=== PATIENT | male | born 1985 | race Two or more races ===

== ENCOUNTER 2022-02-12 19:23 | Inpatient (IN) | payer MEDICAID ==
[~2022-02-12] VITALS: Ht 175.3 cm; Wt 104.3 kg
[~2022-02-12 19:23] MED LIST: PARO-38 PO; QUET100T PO; TRAZ-186 PO
[2022-02-12 20:11] LABS: GLUCOMETER DEV NAME(LOC) POC.BV
[2022-02-12] MEDS ORDERED: ZOLPIDEM TARTRATE 10 MG TABLET PO PRN (20:45)
[2022-02-12] MEDS ORDERED: LORazepam 2 MG TABLET PO PRN (20:45)
[2022-02-12] MEDS ORDERED: HALOPERIDOL 5 MG TABLET PO PRN (20:45)
[2022-02-12 22:38] VITALS: BP 103/72
[2022-02-12] MEDS ORDERED: PNEUMOCOCCAL VACCINE POLYVALENT 0.5 ML VIAL [PPSV23] IM. ONE (23:15)
[2022-02-13] MEDS ORDERED: PETROLATUM,WHITE 28 GM JELLY TP PRN (06:45)
[2022-02-13] MEDS ORDERED: DOCUSATE SODIUM 100 MG CAPSULE PO PRN (06:45)
[2022-02-13] MEDS ORDERED: LOPERAMIDE HCL 2 MG CAPSULE PO PRN (06:45)
[2022-02-13] MEDS ORDERED: NICOTINE 14 MG/24 HOUR PATCH TD PRN (06:45)
[2022-02-13] MEDS ORDERED: MAGNESIUM HYDROXIDE SUSPENSION 30 ML UDCUP PO PRN (06:45)
[2022-02-13] MEDS ORDERED: MAG HYDROX/AL HYDROX/SIMETH ES 30 ML SUSPENSION UDCUP PO PRN (06:45)
[2022-02-13] MEDS ORDERED: ACETAMINOPHEN 325 MG TABLET PO PRN (06:45)
[2022-02-13] MEDS ORDERED: CloNIDine HCL 0.1 MG TABLET PO PRN (06:45)
[2022-02-13] MEDS ORDERED: IBUPROFEN 400 MG TABLET PO PRN (06:45)
[2022-02-13] MEDS ORDERED: ONDANSETRON HCL 4 MG TABLET PO PRN (06:45)
[2022-02-13] MEDS ORDERED: ALBUTEROL SULFATE HFA 90 MCG/PUFF 8 GM INHALER IH PRN (06:45)
[2022-02-13] MEDS ORDERED: GuaiFENesin/D-METHORPHAN [SUGAR-FREE] 200-20MG/10 ML SYRUP UDCUP PO PRN (06:45)
[2022-02-13] MEDS: OLANZapine 5 MG RAPDIS TABLET PO SCH ×2 (13:56→20:32)
[2022-02-14 07:23] LABS: BASOPHILS % (AUTO) 1.3 % (0.0-2.0); EOSINOPHILS % (AUTO) 1.9 % (1.0-6.0); HEMATOCRIT 42.1 % (41-53); HEMOGLOBIN 14.2 g/dL (13.5-17.5); LYMPHOCYTES # (AUTO) 2.2 K/uL (1.0-4.8); LYMPHOCYTES % (AUTO) 28.9 % (22.0-44.0); MEAN CORPUSCULAR HEMOGLOBIN 30.2 pg (26.0-34.0); MEAN CORPUSCULAR HGB CONC 33.6 G/dL (31.0-37.0); MEAN CORPUSCULAR VOLUME 90 fL (80-100); MONOCYTES # (AUTO) 0.7 K/uL (0.1-1.0); MONOCYTES % (AUTO) 9.5 % (2.0-9.0); NEUTROPHILS # (AUTO) 4.5 K/uL (1.8-7.7); NEUTROPHILS % (AUTO) 58.4 % (40.0-70.0); PLATELET COUNT (AUTO) 314 K/uL (150-450); RED BLOOD CELL COUNT(AUTO) 4.69 MIL/uL (4.50-5.90); RED CELL DISTRIBUTION WIDTH 14.3 % (11.5-14.5)
[2022-02-14 07:31] LABS: HEMOGLOBIN A1C 5.8 % (3.8-5.6)
[2022-02-14 07:47] LABS: ALANINE AMINOTRANSFERASE 46 U/L (12-78); ALBUMIN 3.2 g/dL (3.4-5.0); ALKALINE PHOSPHATASE 82 U/L (46-116); ASPARTATE AMINOTRANSFERASE 32 U/L (15-37); BILIRUBIN,TOTAL 0.4 mg/dL (0.1-1.0); CALCIUM, TOTAL 8.7 mg/dL (8.8-10.5); CARBON DIOXIDE 29 mmol/L (22-29); CHOL/HDL RATIO 4.9 (4.2-7.3); CHOLESTEROL 162 mg/dL (131-200); CREATININE 0.72 mg/dL (0.60-1.30); FREE T4 (FREE THYROXINE) 1.16 ng/dL (0.76-1.46); GLUCOSE,RANDOM 99 mg/dL (70-110); HDL CHOLESTEROL 33 mg/dL (40-60); LDL CHOL (CALC.) 112 mg/dL (0-130); POTASSIUM 3.7 mmol/L (3.5-5.1); THYROID STIMULATING HORMONE 0.51 uIU/mL (0.36-3.74); TOTAL PROTEIN, SERUM 6.9 g/dL (6.4-8.2); TRIGLYCERIDES 87 mg/dL (15-150); UREA NITROGEN, BLOOD 10 mg/dL (7-18)
[2022-02-14 07:48] LABS: ANION GAP 6 mmol/L (8-16); CHLORIDE 105 mmol/L (98-107); GLOMERULAR FILTR. RATE CALC > 60 mL/min (>60); SODIUM SERUM 140 mmol/L (136-145)
[2022-02-14 08:40] VITALS: BP 140/90
[2022-02-14] MEDS: OLANZapine 5 MG RAPDIS TABLET PO SCH (10:29)
[2022-02-14] MEDS ORDERED: OLAN5TAB94 PO (13:17)
[2022-02-14] MEDS ORDERED: OLAN5TAB30 PO (13:26)
== END 2022-02-14 14:00 | disposition home or self-care (01) | DRG 750 ==
LOC: B2S 20:33
PROVIDERS: ADMIT Psychiatry & Neurology Child & Adolescent Psychiatry; ATTEND Psychiatry & Neurology Child & Adolescent Psychiatry
DX: F25.1 Schizoaffective disorder, depressive type (principal); R45.851 Suicidal ideations; F15.10 Other stimulant abuse, uncomplicated; F10.10 Alcohol abuse, uncomplicated; G47.00 Insomnia, unspecified; I10 Essential (primary) hypertension; E66.9 Obesity, unspecified; F41.9 Anxiety disorder, unspecified; Z20.822 Contact with and (suspected) exposure to COVID-19; Z68.34 Body mass index [BMI] 34.0-34.9, adult; Z79.01 Long term (current) use of anticoagulants; Z79.899 Other long term (current) drug therapy
CPT/HCPCS: 80053; 80061; 83036; 84439; 84443; 85025

== ENCOUNTER 2022-02-17 06:27 | Inpatient (IN) | payer MEDICAID, OTHER ==
[~2022-02-17] VITALS: Ht 172.7 cm; Wt 88.7 kg
[~2022-02-17 06:27] MED LIST changes: +OLAN5TAB30 PO; +OLAN5TAB94 PO; -PARO-38 PO; -QUET100T PO; -TRAZ-186 PO
[2022-02-17 07:00] LABS: BASOPHILS % (AUTO) 0.9 % (0.0-2.0); EOSINOPHILS % (AUTO) 1.6 % (1.0-6.0); HEMOGLOBIN 14.2 g/dL (13.5-17.5); LYMPHOCYTES # (AUTO) 1.9 K/uL (1.0-4.8); LYMPHOCYTES % (AUTO) 18.5 % (22.0-44.0); MEAN CORPUSCULAR HEMOGLOBIN 30.2 pg (26.0-34.0); MEAN CORPUSCULAR HGB CONC 33.9 G/dL (31.0-37.0); MEAN CORPUSCULAR VOLUME 89 fL (80-100); MONOCYTES # (AUTO) 0.8 K/uL (0.1-1.0); MONOCYTES % (AUTO) 8.1 % (2.0-9.0); NEUTROPHILS # (AUTO) 7.4 K/uL (1.8-7.7); NEUTROPHILS % (AUTO) 70.9 % (40.0-70.0); PLATELET COUNT (AUTO) 322 K/uL (150-450); RED BLOOD CELL COUNT(AUTO) 4.71 MIL/uL (4.50-5.90); RED CELL DISTRIBUTION WIDTH 14.1 % (11.5-14.5)
[2022-02-17 07:11] LABS: ANION GAP 7 mmol/L (8-16); CARBON DIOXIDE 27 mmol/L (22-29); CHLORIDE 102 mmol/L (98-107); CREATININE 0.72 mg/dL (0.60-1.30); GLOMERULAR FILTR. RATE CALC > 60 mL/min (>60); GLUCOSE,RANDOM 88 mg/dL (70-110); POTASSIUM 3.9 mmol/L (3.5-5.1); SODIUM SERUM 136 mmol/L (136-145); UREA NITROGEN, BLOOD 9 mg/dL (7-18)
[2022-02-17 07:19] LABS: ALANINE AMINOTRANSFERASE 67 U/L (12-78); ALBUMIN 3.8 g/dL (3.4-5.0); ALKALINE PHOSPHATASE 80 U/L (46-116); ASPARTATE AMINOTRANSFERASE 35 U/L (15-37); TOTAL PROTEIN, SERUM 7.8 g/dL (6.4-8.2)
[2022-02-17 07:28] LABS: COVID AG,FIA SOURCE NASOPHARYNGEAL
[2022-02-17] MEDS: HALOPERIDOL 5 MG TABLET PO PRN (12:20)
[2022-02-17] MEDS: LORazepam 2 MG TABLET PO PRN (12:20)
[2022-02-17 12:36] VITALS: BP 140/89
[2022-02-17 20:06] VITALS: BP 100/60
[2022-02-18 08:50] VITALS: BP 124/72
[2022-02-18] MEDS: OLANZapine 5 MG TABLET PO SCH ×2 (09:37→20:01)
[2022-02-18] MEDS ORDERED: ACETAMINOPHEN 325 MG TABLET PO PRN (11:30)
[2022-02-18] MEDS ORDERED: NICOTINE 14 MG/24 HOUR PATCH TD PRN (11:30)
[2022-02-18] MEDS ORDERED: CloNIDine HCL 0.1 MG TABLET PO PRN (11:30)
[2022-02-18] MEDS ORDERED: ALBUTEROL SULFATE HFA 90 MCG/PUFF 8 GM INHALER IH PRN (11:30)
[2022-02-18] MEDS ORDERED: GuaiFENesin/D-METHORPHAN [SUGAR-FREE] 200-20MG/10 ML SYRUP UDCUP PO PRN (11:30)
[2022-02-18] MEDS ORDERED: ONDANSETRON HCL 4 MG TABLET PO PRN (11:30)
[2022-02-18] MEDS ORDERED: PETROLATUM,WHITE 28 GM JELLY TP PRN (11:30)
[2022-02-18] MEDS ORDERED: MAGNESIUM HYDROXIDE SUSPENSION 30 ML UDCUP PO PRN (11:30)
[2022-02-18] MEDS ORDERED: MAG HYDROX/AL HYDROX/SIMETH ES 30 ML SUSPENSION UDCUP PO PRN (11:30)
[2022-02-18] MEDS ORDERED: LOPERAMIDE HCL 2 MG CAPSULE PO PRN (11:30)
[2022-02-18] MEDS ORDERED: DOCUSATE SODIUM 100 MG CAPSULE PO PRN (11:30)
[2022-02-18] MEDS ORDERED: IBUPROFEN 400 MG TABLET PO PRN (11:30)
[2022-02-18] MEDS: ZOLPIDEM TARTRATE 10 MG TABLET PO PRN (20:01)
[2022-02-18 20:27] VITALS: BP 115/60
[2022-02-19 07:28] LABS: APPEARANCE,URINE TURBID (CLEAR); BILIRUBIN,URINE NEGATIVE (NEGATIVE); GLUCOSE, URINE (UA) NEGATIVE (NEGATIVE); KETONES,URINE 40-60 mg/dL (NEGATIVE); LEUKOCYTE ESTERASE ,URINE NEGATIVE (NEGATIVE); NITRATE,URINE NEGATIVE (NEGATIVE); OCCULT BLOOD,URINE NEGATIVE (NEGATIVE); PROTEIN,URINE TRACE mg/dL (NEGATIVE); SPECIFIC GRAVITIY, URINE 1.026 (1.003-1.030)
[2022-02-19 07:34] LABS: AMPHET/METH SCREEN,URINE POSITIVE (NEGATIVE); BARBITURATE SCREEN, URINE NEGATIVE (NEGATIVE); BENZODIAZEPINES SCREEN,URINE NEGATIVE (NEGATIVE); CANNABINOID SCREEN,URINE POSITIVE (NEGATIVE); COCAINE SCREEN,URINE NEGATIVE (NEGATIVE); METHADONE SCREEN, URINE NEGATIVE (NEGATIVE); OPIATE SCREEN,URINE NEGATIVE (NEGATIVE)
[2022-02-19 07:58] LABS: BACTERIA,URINE None Seen /HPF (None Seen); RBC,URINE None Seen /HPF (0-2); SQUAMOUS EPITHELIAL CELL,UR Few /LPF (None Seen); URIC ACID CRYSTALS,URINE Few /LPF (None Seen); WBC,URINE None Seen /HPF (0-5)
[2022-02-19 08:17] LABS: PHENCYCLIDINE SCREEN,URINE NEGATIVE (NEGATIVE)
[2022-02-19] MEDS: LORazepam 2 MG TABLET PO PRN ×3 (08:30→16:48)
[2022-02-19] MEDS: OLANZapine 5 MG TABLET PO SCH ×2 (08:31→20:40)
[2022-02-19 09:56] VITALS: BP 122/70
[2022-02-19] MEDS: HALOPERIDOL 5 MG TABLET PO PRN (16:48)
[2022-02-20] MEDS: LORazepam 2 MG TABLET PO PRN ×4 (07:13→16:54)
[2022-02-20] MEDS: HALOPERIDOL 5 MG TABLET PO PRN ×2 (07:13→16:38)
[2022-02-20] MEDS: OLANZapine 5 MG TABLET PO SCH ×2 (08:40→20:13)
[2022-02-20] MEDS: ZOLPIDEM TARTRATE 10 MG TABLET PO PRN (20:13)
[2022-02-20 20:20] VITALS: BP 109/71
[2022-02-21] MEDS: LORazepam 2 MG TABLET PO PRN ×4 (08:01→21:29)
[2022-02-21] MEDS: OLANZapine 5 MG TABLET PO SCH ×2 (08:01→20:34)
[2022-02-21 08:38] VITALS: BP 155/102
[2022-02-21] MEDS: HALOPERIDOL 5 MG TABLET PO PRN (16:09)
[2022-02-21 20:16] VITALS: BP 127/81
[2022-02-21] MEDS: IBUPROFEN 400 MG TABLET PO PRN (20:34)
[2022-02-21] MEDS: ZOLPIDEM TARTRATE 10 MG TABLET PO PRN (20:34)
[2022-02-22] MEDS: IBUPROFEN 400 MG TABLET PO PRN (06:47)
[2022-02-22] MEDS: LORazepam 2 MG TABLET PO PRN ×4 (08:28→20:39)
[2022-02-22] MEDS: OLANZapine 5 MG TABLET PO SCH ×2 (08:29→20:39)
[2022-02-22 08:41] VITALS: BP 159/80
[2022-02-22] MEDS: HALOPERIDOL 5 MG TABLET PO PRN ×3 (11:46→20:39)
[2022-02-22 16:09] VITALS: BP 132/78
[2022-02-22] MEDS: TraMADol HCL 50 MG TABLET PO PRN ×2 (16:09→20:40)
[2022-02-22 20:16] VITALS: BP 133/84
[2022-02-22] MEDS: ZOLPIDEM TARTRATE 10 MG TABLET PO PRN (20:39)
[2022-02-23] MEDS: LORazepam 2 MG TABLET PO PRN ×3 (06:28→18:54)
[2022-02-23] MEDS: OLANZapine 5 MG TABLET PO SCH ×2 (08:15→20:58)
[2022-02-23 08:17] VITALS: BP 136/70
[2022-02-23] MEDS: TraMADol HCL 50 MG TABLET PO PRN ×3 (09:05→23:04)
[2022-02-23] MEDS: HALOPERIDOL 5 MG TABLET PO PRN (15:38)
[2022-02-23 16:59] VITALS: BP 135/74
[2022-02-23] MEDS: IBUPROFEN 400 MG TABLET PO PRN (16:59)
[2022-02-23 20:16] VITALS: BP 147/83
[2022-02-24] MEDS: LORazepam 2 MG TABLET PO PRN ×3 (00:51→12:37)
[2022-02-24] MEDS: ZOLPIDEM TARTRATE 10 MG TABLET PO PRN (00:52)
[2022-02-24] MEDS: HALOPERIDOL 5 MG TABLET PO PRN ×2 (07:01→12:37)
[2022-02-24] MEDS: OLANZapine 5 MG TABLET PO SCH (08:13)
[2022-02-24 08:42] VITALS: BP 130/76
[2022-02-24 08:51] LABS: GLUCOMETER DEV NAME(LOC) POC.BV
[2022-02-24] MEDS ORDERED: OLAN5TAB52 PO (15:02)
== END 2022-02-24 16:57 | disposition home or self-care (01) | DRG 750 ==
LOC: EMS 06:27 → B3A 09:41
PROVIDERS: ADMIT Psychiatry & Neurology Child & Adolescent Psychiatry; ATTEND Psychiatry & Neurology Child & Adolescent Psychiatry
DX: F25.1 Schizoaffective disorder, depressive type (principal); R45.851 Suicidal ideations; F41.9 Anxiety disorder, unspecified; F15.10 Other stimulant abuse, uncomplicated; I10 Essential (primary) hypertension; F10.10 Alcohol abuse, uncomplicated; Z20.822 Contact with and (suspected) exposure to COVID-19; Y90.9 Presence of alcohol in blood, level not specified; K59.00 Constipation, unspecified; F12.10 Cannabis abuse, uncomplicated; Z87.891 Personal history of nicotine dependence; Z59.00 Homelessness unspecified; Z91.51 Personal history of suicidal behavior; Z71.41 Alcohol abuse counseling and surveillance of alcoholic; Z71.6 Tobacco abuse counseling
CPT/HCPCS: 80053; 81001; 85025; 87081; 99285; G0480

== ENCOUNTER 2022-02-24 23:24 | Inpatient (IN) | payer MEDICAID, OTHER ==
[~2022-02-24] VITALS: Ht 175.3 cm; Wt 104.4 kg
[~2022-02-24 23:24] MED LIST changes: -OLAN5TAB30 PO; +OLAN5TAB52 PO; -OLAN5TAB94 PO
[2022-02-25 00:42] LABS: BASOPHILS % (AUTO) 0.7 % (0.0-2.0); EOSINOPHILS % (AUTO) 0.2 % (1.0-6.0); HEMATOCRIT 43.6 % (41-53); HEMOGLOBIN 14.8 g/dL (13.5-17.5); LYMPHOCYTES # (AUTO) 1.7 K/uL (1.0-4.8); LYMPHOCYTES % (AUTO) 21.3 % (22.0-44.0); MEAN CORPUSCULAR HEMOGLOBIN 30.2 pg (26.0-34.0); MEAN CORPUSCULAR HGB CONC 33.9 G/dL (31.0-37.0); MEAN CORPUSCULAR VOLUME 89 fL (80-100); MONOCYTES # (AUTO) 0.7 K/uL (0.1-1.0); MONOCYTES % (AUTO) 8.5 % (2.0-9.0); NEUTROPHILS # (AUTO) 5.5 K/uL (1.8-7.7); NEUTROPHILS % (AUTO) 69.3 % (40.0-70.0); PLATELET COUNT (AUTO) 328 K/uL (150-450); RED BLOOD CELL COUNT(AUTO) 4.89 MIL/uL (4.50-5.90); RED CELL DISTRIBUTION WIDTH 14.6 % (11.5-14.5)
[2022-02-25 00:51] LABS: ANION GAP 7 mmol/L (8-16); CALCIUM, TOTAL 8.9 mg/dL (8.8-10.5); CARBON DIOXIDE 28 mmol/L (22-29); CHLORIDE 103 mmol/L (98-107); CREATININE 0.73 mg/dL (0.60-1.30); GLUCOSE,RANDOM 111 mg/dL (70-110); POTASSIUM 4.1 mmol/L (3.5-5.1); SODIUM SERUM 138 mmol/L (136-145); UREA NITROGEN, BLOOD 4 mg/dL (7-18)
[2022-02-25 00:54] LABS: GLOMERULAR FILTR. RATE CALC > 60 mL/min (>60)
[2022-02-25 00:58] LABS: ALANINE AMINOTRANSFERASE 155 U/L (12-78); ALBUMIN 3.9 g/dL (3.4-5.0); ALKALINE PHOSPHATASE 87 U/L (46-116); ASPARTATE AMINOTRANSFERASE 69 U/L (15-37); BILIRUBIN,TOTAL 0.3 mg/dL (0.1-1.0); TOTAL PROTEIN, SERUM 7.8 g/dL (6.4-8.2)
[2022-02-25 01:27] LABS: COVID AG,FIA SOURCE NASAL SWAB
[2022-02-25] MEDS ORDERED: LORazepam 2 MG TABLET PO PRN (03:45)
[2022-02-25] MEDS ORDERED: ZOLPIDEM TARTRATE 10 MG TABLET PO PRN (03:45)
[2022-02-25 04:30] VITALS: BP 156/107
[2022-02-25] MEDS ORDERED: LOPERAMIDE HCL 2 MG CAPSULE PO PRN (07:30)
[2022-02-25] MEDS ORDERED: MAGNESIUM HYDROXIDE SUSPENSION 30 ML UDCUP PO PRN (07:30)
[2022-02-25] MEDS ORDERED: PETROLATUM,WHITE 28 GM JELLY TP PRN (07:30)
[2022-02-25] MEDS ORDERED: ONDANSETRON HCL 4 MG TABLET PO PRN (07:30)
[2022-02-25] MEDS ORDERED: IBUPROFEN 400 MG TABLET PO PRN (07:30)
[2022-02-25] MEDS ORDERED: MAG HYDROX/AL HYDROX/SIMETH ES 30 ML SUSPENSION UDCUP PO PRN (07:30)
[2022-02-25] MEDS ORDERED: CloNIDine HCL 0.1 MG TABLET PO PRN (07:30)
[2022-02-25] MEDS ORDERED: DOCUSATE SODIUM 100 MG CAPSULE PO PRN (07:30)
[2022-02-25] MEDS ORDERED: GuaiFENesin/D-METHORPHAN [SUGAR-FREE] 200-20MG/10 ML SYRUP UDCUP PO PRN (07:30)
[2022-02-25] MEDS ORDERED: ALBUTEROL SULFATE HFA 90 MCG/PUFF 8 GM INHALER IH PRN (07:30)
[2022-02-25] MEDS ORDERED: ACETAMINOPHEN 325 MG TABLET PO PRN (07:30)
[2022-02-25 08:00] VITALS: BP 150/96
[2022-02-25] MEDS: AmLODIPine BESYLATE 5 MG TABLET PO SCH (10:09)
[2022-02-25] MEDS: HALOPERIDOL 5 MG TABLET PO PRN ×2 (10:19→17:53)
[2022-02-25] MEDS: NICOTINE 14 MG/24 HOUR PATCH TD PRN (13:17)
[2022-02-25 13:19] VITALS: BP 140/97
[2022-02-25] MEDS: OLANZapine 5 MG TABLET PO SCH ×2 (14:43→21:08)
[2022-02-25 16:13] VITALS: BP 122/75
[2022-02-25] MEDS: HydrOXYzine PAMOATE 50 MG CAPSULE PO PRN (17:53)
[2022-02-26] MEDS: HALOPERIDOL 5 MG TABLET PO PRN ×2 (00:57→15:41)
[2022-02-26 08:09] VITALS: BP 147/90
[2022-02-26] MEDS: OLANZapine 5 MG TABLET PO SCH ×2 (09:17→20:27)
[2022-02-26] MEDS: AmLODIPine BESYLATE 5 MG TABLET PO SCH (09:17)
[2022-02-26] MEDS: HydrOXYzine PAMOATE 50 MG CAPSULE PO PRN (15:41)
[2022-02-26 16:09] VITALS: BP 124/73
[2022-02-26] MEDS: NICOTINE 14 MG/24 HOUR PATCH TD PRN (16:39)
[2022-02-27] MEDS: AmLODIPine BESYLATE 5 MG TABLET PO SCH (08:44)
[2022-02-27] MEDS: HydrOXYzine PAMOATE 50 MG CAPSULE PO PRN (08:44)
[2022-02-27] MEDS: OLANZapine 5 MG TABLET PO SCH ×2 (08:44→20:13)
[2022-02-27] MEDS: HALOPERIDOL 5 MG TABLET PO PRN (08:44)
[2022-02-27 11:47] VITALS: BP 144/90
[2022-02-27 16:28] VITALS: BP 133/86
[2022-02-28 08:30] VITALS: BP 129/86
[2022-02-28] MEDS: AmLODIPine BESYLATE 5 MG TABLET PO SCH (08:44)
[2022-02-28] MEDS: HALOPERIDOL 5 MG TABLET PO PRN (08:44)
[2022-02-28] MEDS: OLANZapine 5 MG TABLET PO SCH (08:44)
[2022-02-28] MEDS: HydrOXYzine PAMOATE 50 MG CAPSULE PO PRN (08:44)
[2022-02-28] MEDS ORDERED: OLAN5TAB52 PO (11:02)
[2022-02-28] MEDS ORDERED: AMLO-257 PO ×2 (11:08→11:20)
== END 2022-02-28 11:55 | disposition home or self-care (01) | DRG 750 ==
LOC: EMS 23:25 → 3EI 02-25 03:51
PROVIDERS: ADMIT Psychiatry & Neurology Child & Adolescent Psychiatry; ATTEND Psychiatry & Neurology Child & Adolescent Psychiatry
DX: F25.1 Schizoaffective disorder, depressive type (principal); R45.851 Suicidal ideations; I10 Essential (primary) hypertension; K59.00 Constipation, unspecified; E66.9 Obesity, unspecified; Y90.1 Blood alcohol level of 20-39 mg/100 ml; F10.10 Alcohol abuse, uncomplicated; F41.9 Anxiety disorder, unspecified; F32.A Depression, unspecified; F15.10 Other stimulant abuse, uncomplicated; F12.10 Cannabis abuse, uncomplicated; Z20.822 Contact with and (suspected) exposure to COVID-19; Z59.00 Homelessness unspecified; Z87.891 Personal history of nicotine dependence; Z91.51 Personal history of suicidal behavior; Z79.899 Other long term (current) drug therapy; Z68.34 Body mass index [BMI] 34.0-34.9, adult
CPT/HCPCS: 80053; 85025; 87081; 99285; G0480

== ENCOUNTER 2022-04-17 17:09 | Inpatient (IN) | payer MEDICAID ==
[~2022-04-17] VITALS: Ht 175.3 cm; Wt 102.1 kg
[~2022-04-17 17:09] MED LIST changes: +AMLO-257 PO
[2022-04-17] MEDS ORDERED: MAGNESIUM HYDROXIDE SUSPENSION 30 ML UDCUP PO PRN (17:45)
[2022-04-17] MEDS ORDERED: OLANZapine 5 MG RAPDIS TABLET PO PRN (17:45)
[2022-04-17] MEDS ORDERED: MAG HYDROX/AL HYDROX/SIMETH ES 30 ML SUSPENSION UDCUP PO PRN (17:45)
[2022-04-17] MEDS ORDERED: HydrOXYzine PAMOATE 50 MG CAPSULE PO PRN (17:45)
[2022-04-17] MEDS ORDERED: TUBERCULIN, PURIFIED PROTEIN DERIVATIVE 5 TU/0.1 ML SYRINGE ID ONE (17:45)
[2022-04-17] MEDS ORDERED: LOPERAMIDE HCL 2 MG CAPSULE PO PRN (17:45)
[2022-04-17] MEDS ORDERED: GuaiFENesin/D-METHORPHAN [SUGAR-FREE] 200-20MG/10 ML SYRUP UDCUP PO PRN (17:45)
[2022-04-17] MEDS ORDERED: PROMETHAZINE HCL 25 MG TABLET PO PRN (17:45)
[2022-04-17 18:22] LABS: GLUCOMETER DEV NAME(LOC) POC.BV
[2022-04-17] MEDS ORDERED: PNEUMOCOCCAL VACCINE POLYVALENT 0.5 ML VIAL [PPSV23] IM. ONE (19:45)
[2022-04-17] MEDS ORDERED: INFLUENZA VIRUS VACCINE QVS 2022-23 (6MO+)/PF 60 MCG/0.5 ML SYRINGE IM. ONE (19:45)
[2022-04-17] MEDS: THIAMINE 100 MG TABLET PO SCH (20:33)
[2022-04-17] MEDS: MELATONIN 5 MG TABLET PO SCH (20:34)
[2022-04-17] MEDS ORDERED: OLANZapine 5 MG RAPDIS TABLET PO SCH (21:00)
[2022-04-17 21:04] VITALS: BP 131/71
[2022-04-18 07:04] LABS: BASOPHILS % (AUTO) 1.2 % (0.0-2.0); EOSINOPHILS % (AUTO) 2.7 % (1.0-6.0); HEMATOCRIT 41.5 % (41-53); HEMOGLOBIN 13.9 g/dL (13.5-17.5); LYMPHOCYTES # (AUTO) 2.6 K/uL (1.0-4.8); LYMPHOCYTES % (AUTO) 37.1 % (22.0-44.0); MEAN CORPUSCULAR HEMOGLOBIN 29.7 pg (26.0-34.0); MEAN CORPUSCULAR HGB CONC 33.4 G/dL (31.0-37.0); MEAN CORPUSCULAR VOLUME 89 fL (80-100); MONOCYTES # (AUTO) 0.7 K/uL (0.1-1.0); MONOCYTES % (AUTO) 9.8 % (2.0-9.0); NEUTROPHILS # (AUTO) 3.4 K/uL (1.8-7.7); NEUTROPHILS % (AUTO) 49.2 % (40.0-70.0); PLATELET COUNT (AUTO) 369 K/uL (150-450); RED BLOOD CELL COUNT(AUTO) 4.67 MIL/uL (4.50-5.90); RED CELL DISTRIBUTION WIDTH 14.2 % (11.5-14.5)
[2022-04-18 07:30] LABS: HEMOGLOBIN A1C 5.3 % (3.8-5.6)
[2022-04-18 07:33] LABS: ALANINE AMINOTRANSFERASE 27 U/L (12-78); ALBUMIN 3.2 g/dL (3.4-5.0); ALKALINE PHOSPHATASE 79 U/L (46-116); ANION GAP 7 mmol/L (8-16); ASPARTATE AMINOTRANSFERASE 17 U/L (15-37); BILIRUBIN,TOTAL 0.4 mg/dL (0.1-1.0); CARBON DIOXIDE 28 mmol/L (22-29); CHLORIDE 106 mmol/L (98-107); CHOL/HDL RATIO 3.9 (4.2-7.3); CHOLESTEROL 138 mg/dL (131-200); CREATININE 0.75 mg/dL (0.60-1.30); FREE T4 (FREE THYROXINE) 0.99 ng/dL (0.76-1.46); GLUCOSE,RANDOM 99 mg/dL (70-110); HDL CHOLESTEROL 35 mg/dL (40-60); LDL CHOL (CALC.) 83 mg/dL (0-130); POTASSIUM 3.5 mmol/L (3.5-5.1); SODIUM SERUM 141 mmol/L (136-145); THYROID STIMULATING HORMONE 1.41 uIU/mL (0.36-3.74); TOTAL PROTEIN, SERUM 6.9 g/dL (6.4-8.2); TRIGLYCERIDES 100 mg/dL (15-150); UREA NITROGEN, BLOOD 8 mg/dL (7-18)
[2022-04-18 07:34] LABS: GLOMERULAR FILTR. RATE CALC > 60 mL/min (>60)
[2022-04-18] MEDS: OMEGA-3/DHA/EPA/FISH OIL 1,000 MG CAPSULE PO SCH (08:22)
[2022-04-18] MEDS: FOLIC ACID 1 MG TABLET PO SCH (08:23)
[2022-04-18] MEDS: MULTIVITAMINS WITH MINERALS, THERAPEUTIC TABLET PO SCH (08:23)
[2022-04-18] MEDS: NALTREXONE HCL 50 MG TABLET PO SCH (08:23)
[2022-04-18] MEDS: THIAMINE 100 MG TABLET PO SCH ×2 (08:23→16:11)
[2022-04-18 08:49] VITALS: BP 109/66
[2022-04-18] MEDS: LORazepam 2 MG TABLET PO PRN (15:56)
[2022-04-18] MEDS: MELATONIN 5 MG TABLET PO SCH (20:40)
[2022-04-18] MEDS: OLANZapine 10 MG RAPDIS TABLET PO SCH (20:41)
[2022-04-19 01:00] VITALS: BP 128/70
[2022-04-19 08:29] VITALS: BP 133/93
[2022-04-19] MEDS: NALTREXONE HCL 50 MG TABLET PO SCH (08:44)
[2022-04-19] MEDS: MULTIVITAMINS WITH MINERALS, THERAPEUTIC TABLET PO SCH (08:44)
[2022-04-19] MEDS: FOLIC ACID 1 MG TABLET PO SCH (08:44)
[2022-04-19] MEDS: LORazepam 2 MG TABLET PO PRN (08:44)
[2022-04-19] MEDS: OMEGA-3/DHA/EPA/FISH OIL 1,000 MG CAPSULE PO SCH (08:44)
[2022-04-19] MEDS: THIAMINE 100 MG TABLET PO SCH ×2 (08:44→16:11)
[2022-04-19 20:11] VITALS: BP 140/82
[2022-04-19] MEDS: MELATONIN 5 MG TABLET PO SCH (20:12)
[2022-04-19] MEDS: OLANZapine 10 MG RAPDIS TABLET PO SCH (20:12)
[2022-04-19] MEDS: DIVALPROEX SODIUM 500 MG ER TABLET PO SCH (20:13)
[2022-04-20] MEDS: MULTIVITAMINS WITH MINERALS, THERAPEUTIC TABLET PO SCH (08:24)
[2022-04-20] MEDS: OMEGA-3/DHA/EPA/FISH OIL 1,000 MG CAPSULE PO SCH (08:24)
[2022-04-20] MEDS: NALTREXONE HCL 50 MG TABLET PO SCH (08:24)
[2022-04-20] MEDS: LORazepam 2 MG TABLET PO PRN (08:24)
[2022-04-20] MEDS: THIAMINE 100 MG TABLET PO SCH ×2 (08:24→16:19)
[2022-04-20] MEDS: FOLIC ACID 1 MG TABLET PO SCH (08:24)
[2022-04-20 08:27] VITALS: BP 121/74
[2022-04-20] MEDS: DIVALPROEX SODIUM 500 MG ER TABLET PO SCH (20:12)
[2022-04-20] MEDS: MELATONIN 5 MG TABLET PO SCH (20:12)
[2022-04-20] MEDS: OLANZapine 10 MG RAPDIS TABLET PO SCH (20:12)
[2022-04-20 20:14] VITALS: BP 118/64
[2022-04-21] MEDS: OMEGA-3/DHA/EPA/FISH OIL 1,000 MG CAPSULE PO SCH (08:26)
[2022-04-21] MEDS: THIAMINE 100 MG TABLET PO SCH ×2 (08:26→16:12)
[2022-04-21] MEDS: FOLIC ACID 1 MG TABLET PO SCH (08:27)
[2022-04-21] MEDS: NALTREXONE HCL 50 MG TABLET PO SCH (08:27)
[2022-04-21] MEDS: MULTIVITAMINS WITH MINERALS, THERAPEUTIC TABLET PO SCH (08:27)
[2022-04-21] MEDS: LORazepam 2 MG TABLET PO PRN ×2 (08:27→16:12)
[2022-04-21 09:28] VITALS: BP 132/78
[2022-04-21] MEDS: DIVALPROEX SODIUM 500 MG ER TABLET PO SCH (20:40)
[2022-04-21] MEDS: OLANZapine 10 MG RAPDIS TABLET PO SCH (20:40)
[2022-04-21] MEDS: MELATONIN 5 MG TABLET PO SCH (20:40)
[2022-04-21 20:52] VITALS: BP 117/76
[2022-04-22 07:51] LABS: APPEARANCE,URINE HAZY (CLEAR); BILIRUBIN,URINE NEGATIVE (NEGATIVE); GLUCOSE, URINE (UA) NEGATIVE (NEGATIVE); KETONES,URINE TRACE mg/dL (NEGATIVE); LEUKOCYTE ESTERASE ,URINE NEGATIVE (NEGATIVE); NITRATE,URINE NEGATIVE (NEGATIVE); OCCULT BLOOD,URINE NEGATIVE (NEGATIVE); PROTEIN,URINE NEGATIVE (NEGATIVE); SPECIFIC GRAVITIY, URINE 1.015 (1.003-1.030); UROBILINOGEN,URINE <=1.0 mg/dL (<=1.0)
[2022-04-22 07:54] LABS: AMPHET/METH SCREEN,URINE NEGATIVE (NEGATIVE); BARBITURATE SCREEN, URINE NEGATIVE (NEGATIVE); BENZODIAZEPINES SCREEN,URINE NEGATIVE (NEGATIVE); CANNABINOID SCREEN,URINE NEGATIVE (NEGATIVE); COCAINE SCREEN,URINE NEGATIVE (NEGATIVE); METHADONE SCREEN, URINE NEGATIVE (NEGATIVE); OPIATE SCREEN,URINE NEGATIVE (NEGATIVE); PHENCYCLIDINE SCREEN,URINE NEGATIVE (NEGATIVE)
[2022-04-22 08:36] VITALS: BP 115/70
[2022-04-22] MEDS: THIAMINE 100 MG TABLET PO SCH ×2 (09:14→16:07)
[2022-04-22] MEDS: MULTIVITAMINS WITH MINERALS, THERAPEUTIC TABLET PO SCH (09:14)
[2022-04-22] MEDS: NALTREXONE HCL 50 MG TABLET PO SCH (09:14)
[2022-04-22] MEDS: FOLIC ACID 1 MG TABLET PO SCH (09:14)
[2022-04-22] MEDS: OMEGA-3/DHA/EPA/FISH OIL 1,000 MG CAPSULE PO SCH (09:14)
[2022-04-22] MEDS: LORazepam 2 MG TABLET PO PRN (16:07)
[2022-04-22] MEDS: MELATONIN 5 MG TABLET PO SCH (20:28)
[2022-04-22] MEDS: DIVALPROEX SODIUM 500 MG ER TABLET PO SCH (20:28)
[2022-04-22] MEDS: OLANZapine 10 MG RAPDIS TABLET PO SCH (20:28)
[2022-04-22 20:56] VITALS: BP 132/76
[2022-04-23 08:09] VITALS: BP 119/73
[2022-04-23] MEDS: THIAMINE 100 MG TABLET PO SCH ×2 (08:21→16:06)
[2022-04-23] MEDS: FOLIC ACID 1 MG TABLET PO SCH (08:21)
[2022-04-23] MEDS: OMEGA-3/DHA/EPA/FISH OIL 1,000 MG CAPSULE PO SCH (08:21)
[2022-04-23] MEDS: MULTIVITAMINS WITH MINERALS, THERAPEUTIC TABLET PO SCH (08:21)
[2022-04-23] MEDS: NALTREXONE HCL 50 MG TABLET PO SCH (08:21)
[2022-04-23 08:56] LABS: GLUCOMETER DEV NAME(LOC) POC.BV
[2022-04-23] MEDS: OLANZapine 10 MG RAPDIS TABLET PO SCH (20:05)
[2022-04-23] MEDS: DIVALPROEX SODIUM 500 MG ER TABLET PO SCH (20:05)
[2022-04-23] MEDS: MELATONIN 5 MG TABLET PO SCH (20:05)
[2022-04-23 21:54] VITALS: BP 114/76
[2022-04-24] MEDS: THIAMINE 100 MG TABLET PO SCH ×2 (08:23→16:35)
[2022-04-24] MEDS: FOLIC ACID 1 MG TABLET PO SCH (08:23)
[2022-04-24] MEDS: OMEGA-3/DHA/EPA/FISH OIL 1,000 MG CAPSULE PO SCH (08:23)
[2022-04-24] MEDS: LORazepam 2 MG TABLET PO PRN ×2 (08:23→16:37)
[2022-04-24] MEDS: MULTIVITAMINS WITH MINERALS, THERAPEUTIC TABLET PO SCH (08:23)
[2022-04-24] MEDS: NALTREXONE HCL 50 MG TABLET PO SCH (08:23)
[2022-04-24 09:15] VITALS: BP 117/63
[2022-04-24] MEDS: DIVALPROEX SODIUM 500 MG ER TABLET PO SCH (20:20)
[2022-04-24] MEDS: OLANZapine 10 MG RAPDIS TABLET PO SCH (20:20)
[2022-04-24] MEDS: MELATONIN 5 MG TABLET PO SCH (20:20)
[2022-04-24 20:27] VITALS: BP 138/92
[2022-04-25] MEDS: ACETAMINOPHEN 325 MG TABLET PO PRN (07:15)
[2022-04-25 08:13] VITALS: BP 112/67
[2022-04-25] MEDS: OMEGA-3/DHA/EPA/FISH OIL 1,000 MG CAPSULE PO SCH (08:56)
[2022-04-25] MEDS: FOLIC ACID 1 MG TABLET PO SCH (08:56)
[2022-04-25] MEDS: NALTREXONE HCL 50 MG TABLET PO SCH (08:56)
[2022-04-25] MEDS: THIAMINE 100 MG TABLET PO SCH ×2 (08:56→16:14)
[2022-04-25] MEDS: MULTIVITAMINS WITH MINERALS, THERAPEUTIC TABLET PO SCH (08:56)
[2022-04-25] MEDS: LORazepam 2 MG TABLET PO PRN (08:57)
[2022-04-25] MEDS: DIVALPROEX SODIUM 500 MG ER TABLET PO SCH (20:04)
[2022-04-25] MEDS: OLANZapine 10 MG RAPDIS TABLET PO SCH (20:04)
[2022-04-25] MEDS: MELATONIN 5 MG TABLET PO SCH (20:04)
[2022-04-25 20:11] VITALS: BP 114/70
[2022-04-25] MEDS: ZOLPIDEM TARTRATE 10 MG TABLET PO PRN (21:07)
[2022-04-26] MEDS: FOLIC ACID 1 MG TABLET PO SCH (08:41)
[2022-04-26] MEDS: OMEGA-3/DHA/EPA/FISH OIL 1,000 MG CAPSULE PO SCH (08:41)
[2022-04-26] MEDS: NALTREXONE HCL 50 MG TABLET PO SCH (08:41)
[2022-04-26] MEDS: MULTIVITAMINS WITH MINERALS, THERAPEUTIC TABLET PO SCH (08:42)
[2022-04-26] MEDS: THIAMINE 100 MG TABLET PO SCH ×2 (08:42→17:15)
[2022-04-26 09:00] VITALS: BP 107/62
[2022-04-26] MEDS ORDERED: LORazepam 1 MG TABLET PO PRN (17:45)
[2022-04-26] MEDS: DIVALPROEX SODIUM 500 MG ER TABLET PO SCH (20:17)
[2022-04-26] MEDS: OLANZapine 10 MG RAPDIS TABLET PO SCH (20:18)
[2022-04-26] MEDS: MELATONIN 5 MG TABLET PO SCH (20:18)
[2022-04-26] MEDS: ZOLPIDEM TARTRATE 10 MG TABLET PO PRN (20:18)
[2022-04-26 20:37] VITALS: BP 132/68
[2022-04-27] MEDS: ACETAMINOPHEN 325 MG TABLET PO PRN ×2 (06:26→14:23)
[2022-04-27] MEDS: OMEGA-3/DHA/EPA/FISH OIL 1,000 MG CAPSULE PO SCH (08:21)
[2022-04-27] MEDS: NALTREXONE HCL 50 MG TABLET PO SCH (08:21)
[2022-04-27] MEDS: FOLIC ACID 1 MG TABLET PO SCH (08:21)
[2022-04-27] MEDS: MULTIVITAMINS WITH MINERALS, THERAPEUTIC TABLET PO SCH (08:21)
[2022-04-27] MEDS: THIAMINE 100 MG TABLET PO SCH (08:22)
[2022-04-27 08:27] VITALS: BP 120/68
[2022-04-27] MEDS ORDERED: PALIPERIDONE PALMITATE 234 MG/1.5 ML SYRINGE IM ONE (13:45)
[2022-04-27 15:06] LABS: GLUCOMETER DEV NAME(LOC) POC.BV
[2022-04-27] MEDS: MELATONIN 5 MG TABLET PO SCH (20:23)
[2022-04-27] MEDS: DIVALPROEX SODIUM 500 MG ER TABLET PO SCH (20:23)
[2022-04-27 21:52] VITALS: BP 127/73
[2022-04-28] MEDS: ACETAMINOPHEN 325 MG TABLET PO PRN (05:27)
[2022-04-28 05:30] VITALS: BP 124/78
[2022-04-28] MEDS: NALTREXONE HCL 50 MG TABLET PO SCH (08:30)
[2022-04-28] MEDS: MULTIVITAMINS WITH MINERALS, THERAPEUTIC TABLET PO SCH (08:30)
[2022-04-28] MEDS: OMEGA-3/DHA/EPA/FISH OIL 1,000 MG CAPSULE PO SCH (08:30)
[2022-04-28 10:24] VITALS: BP 132/79
[2022-04-28] MEDS ORDERED: MELA5TAB40 PO (14:38)
[2022-04-28] MEDS ORDERED: DIVA-80 PO (14:38)
[2022-04-28] MEDS ORDERED: OMEG-135 PO (14:38)
[2022-04-28] MEDS ORDERED: PALI156D IM (14:38)
[2022-04-28] MEDS ORDERED: NALT50TA PO (14:38)
[2022-05-01] MEDS ORDERED: PALIPERIDONE PALMITATE 156 MG/ML SYRINGE IM ONE (09:00)
== END 2022-04-28 15:59 | disposition home or self-care (01) | DRG 750 ==
LOC: B3A 17:43
PROVIDERS: ADMIT Psychiatry & Neurology Psychiatry; ATTEND Psychiatry & Neurology Psychiatry
DX: F25.1 Schizoaffective disorder, depressive type (principal); U07.1 COVID-19; R45.851 Suicidal ideations; Z91.199 Patient's noncompliance with other medical treatment and regimen due to unspecified reason; F15.90 Other stimulant use, unspecified, uncomplicated; F41.0 Panic disorder [episodic paroxysmal anxiety]; G47.00 Insomnia, unspecified; Z55.9 Problems related to education and literacy, unspecified; Z59.00 Homelessness unspecified; Z63.9 Problem related to primary support group, unspecified; Z65.3 Problems related to other legal circumstances
CPT/HCPCS: 80053; 80061; 80164; 80307; 81003; 83036; 84439; 84443; 85025; 86592; Q9967

== ENCOUNTER 2022-08-01 12:43 | Inpatient (IN) | payer MEDICAID ==
[~2022-08-01] VITALS: Ht 175.3 cm; Wt 103.0 kg
[~2022-08-01 12:43] MED LIST changes: -AMLO-257 PO; +DIVA500T53 PO; +MELA5TAB40 PO; +NALT50TA PO; -OLAN5TAB52 PO; +OMEG-135 PO; +PALI156D IM
[2022-08-01] MEDS ORDERED: ZOLPIDEM TARTRATE 10 MG TABLET PO PRN (14:15)
[2022-08-01 16:13] VITALS: BP 147/80
[2022-08-01] MEDS ORDERED: PNEUMOCOCCAL VACCINE POLYVALENT 0.5 ML VIAL [PPSV23] IM. ONE (16:30)
[2022-08-01 16:32] LABS: GLUCOMETER DEV NAME(LOC) POC.BV
[2022-08-01] MEDS: LORazepam 2 MG TABLET PO PRN (16:39)
[2022-08-01] MEDS: HALOPERIDOL 5 MG TABLET PO PRN (17:38)
[2022-08-01 20:55] VITALS: BP 139/89
[2022-08-02 04:32] VITALS: BP 139/90
[2022-08-02] MEDS ORDERED: INFLUENZA VIRUS VACCINE QVS 2022-23 (6MO+)/PF 60 MCG/0.5 ML SYRINGE IM. ONE (05:30)
[2022-08-02] MEDS ORDERED: ACETAMINOPHEN 325 MG TABLET PO PRN ×2 (07:15→12:15)
[2022-08-02 07:22] LABS: BASOPHILS % (AUTO) 0.6 % (0.0-2.0); HEMATOCRIT 40.6 % (41-53); HEMOGLOBIN 14.2 g/dL (13.5-17.5); LYMPHOCYTES # (AUTO) 2.5 K/uL (1.0-4.8); LYMPHOCYTES % (AUTO) 31.9 % (22.0-44.0); MEAN CORPUSCULAR HEMOGLOBIN 30.3 pg (26.0-34.0); MEAN CORPUSCULAR HGB CONC 34.9 G/dL (31.0-37.0); MEAN CORPUSCULAR VOLUME 87 fL (80-100); MONOCYTES # (AUTO) 0.7 K/uL (0.1-1.0); MONOCYTES % (AUTO) 9.2 % (2.0-9.0); NEUTROPHILS # (AUTO) 4.5 K/uL (1.8-7.7); NEUTROPHILS % (AUTO) 57.3 % (40.0-70.0); PLATELET COUNT (AUTO) 270 K/uL (150-450); RED BLOOD CELL COUNT(AUTO) 4.68 MIL/uL (4.50-5.90); RED CELL DISTRIBUTION WIDTH 15.1 % (11.5-14.5)
[2022-08-02 07:48] LABS: HEMOGLOBIN A1C 5.5 % (3.8-5.6)
[2022-08-02 08:20] LABS: ALANINE AMINOTRANSFERASE 30 U/L (12-78); ALBUMIN 4.1 g/dL (3.4-5.0); ALKALINE PHOSPHATASE 63 U/L (46-116); ANION GAP 8 mmol/L (8-16); ASPARTATE AMINOTRANSFERASE 28 U/L (15-37); BILIRUBIN,TOTAL 1.7 mg/dL (0.1-1.0); CARBON DIOXIDE 28 mmol/L (22-29); CHLORIDE 103 mmol/L (98-107); CHOL/HDL RATIO 3.7 (4.2-7.3); CHOLESTEROL 144 mg/dL (131-200); CREATININE 0.72 mg/dL (0.60-1.30); FREE T4 (FREE THYROXINE) 1.32 ng/dL (0.76-1.46); GLOMERULAR FILTR. RATE CALC > 60 mL/min (>60); GLUCOSE,RANDOM 93 mg/dL (70-110); HDL CHOLESTEROL 39 mg/dL (40-60); LDL CHOL (CALC.) 82 mg/dL (0-130); POTASSIUM 3.3 mmol/L (3.5-5.1); SODIUM SERUM 139 mmol/L (136-145); THYROID STIMULATING HORMONE 0.98 uIU/mL (0.36-3.74); TOTAL PROTEIN, SERUM 7.3 g/dL (6.4-8.2); TRIGLYCERIDES 117 mg/dL (15-150); UREA NITROGEN, BLOOD 14 mg/dL (7-18)
[2022-08-02 08:49] VITALS: BP 128/86
[2022-08-02] MEDS: LORazepam 2 MG TABLET PO PRN (08:55)
[2022-08-02] MEDS ORDERED: POTASSIUM CHLORIDE 20 MEQ ER TABLET PO ONE (09:15)
[2022-08-02] MEDS ORDERED: LOPERAMIDE HCL 2 MG CAPSULE PO PRN (12:15)
[2022-08-02] MEDS ORDERED: MAGNESIUM HYDROXIDE SUSPENSION 30 ML UDCUP PO PRN (12:15)
[2022-08-02] MEDS ORDERED: NICOTINE 14 MG/24 HOUR PATCH TD PRN (12:15)
[2022-08-02] MEDS ORDERED: DOCUSATE SODIUM 100 MG CAPSULE PO PRN (12:15)
[2022-08-02] MEDS ORDERED: ONDANSETRON HCL 4 MG TABLET PO PRN (12:15)
[2022-08-02] MEDS ORDERED: GuaiFENesin/D-METHORPHAN [SUGAR-FREE] 200-20MG/10 ML SYRUP UDCUP PO PRN (12:15)
[2022-08-02] MEDS ORDERED: MAG HYDROX/AL HYDROX/SIMETH ES 30 ML SUSPENSION UDCUP PO PRN (12:15)
[2022-08-02] MEDS ORDERED: IBUPROFEN 400 MG TABLET PO PRN (12:15)
[2022-08-02] MEDS ORDERED: PETROLATUM,WHITE 28 GM JELLY TP PRN (12:15)
[2022-08-02] MEDS ORDERED: ALBUTEROL SULFATE HFA 90 MCG/PUFF 8 GM INHALER IH PRN (12:15)
[2022-08-02] MEDS ORDERED: CloNIDine HCL 0.1 MG TABLET PO PRN (12:15)
[2022-08-02] MEDS: RisperiDONE 2 MG TABLET PO SCH ×2 (12:23→20:38)
[2022-08-02] MEDS: DIVALPROEX SODIUM 500 MG DR TABLET PO SCH ×2 (12:23→16:29)
[2022-08-02] MEDS: NALTREXONE HCL 50 MG TABLET PO SCH (12:23)
[2022-08-02 14:41] LABS: GLUCOMETER DEV NAME(LOC) POC.BV
[2022-08-02 20:36] VITALS: BP 130/81
[2022-08-02] MEDS: MELATONIN 5 MG TABLET PO SCH (20:38)
[2022-08-03] MEDS: DIVALPROEX SODIUM 500 MG DR TABLET PO SCH ×2 (08:28→16:58)
[2022-08-03] MEDS: NALTREXONE HCL 50 MG TABLET PO SCH (08:28)
[2022-08-03] MEDS: OMEGA-3/DHA/EPA/FISH OIL 1,000 MG CAPSULE PO SCH (08:28)
[2022-08-03] MEDS: LORazepam 2 MG TABLET PO PRN (08:28)
[2022-08-03] MEDS: HALOPERIDOL 5 MG TABLET PO PRN (08:28)
[2022-08-03] MEDS: RisperiDONE 2 MG TABLET PO SCH ×2 (08:29→20:19)
[2022-08-03 09:41] VITALS: BP 135/87
[2022-08-03 09:56] LABS: GLUCOMETER DEV NAME(LOC) POC.BV
[2022-08-03] MEDS: MELATONIN 5 MG TABLET PO SCH (20:19)
[2022-08-03 20:34] VITALS: BP 105/64
[2022-08-04] MEDS: LORazepam 2 MG TABLET PO PRN (08:34)
[2022-08-04] MEDS: NALTREXONE HCL 50 MG TABLET PO SCH (08:36)
[2022-08-04] MEDS: DIVALPROEX SODIUM 500 MG DR TABLET PO SCH (08:36)
[2022-08-04] MEDS: OMEGA-3/DHA/EPA/FISH OIL 1,000 MG CAPSULE PO SCH (08:36)
[2022-08-04] MEDS: RisperiDONE 2 MG TABLET PO SCH (08:36)
[2022-08-04 08:55] VITALS: BP 136/73
[2022-08-04] MEDS ORDERED: DIVA-112 PO ×2 (10:05→16:35)
[2022-08-04] MEDS ORDERED: RISP3TAB35 PO (10:06)
[2022-08-04] MEDS ORDERED: NALT50TA6 PO (10:07)
[2022-08-04] MEDS ORDERED: RISP2TAB45 PO (10:09)
[2022-08-04] MEDS ORDERED: RISP2TAB86 PO (16:35)
[2022-08-04] MEDS ORDERED: MELA5TAB40 PO (16:35)
[2022-08-04] MEDS ORDERED: NALT50TA PO (16:35)
== END 2022-08-04 11:20 | disposition home or self-care (01) | DRG 750 ==
LOC: B2S 15:40
PROVIDERS: ADMIT Psychiatry & Neurology Child & Adolescent Psychiatry; ATTEND Psychiatry & Neurology Child & Adolescent Psychiatry
DX: F25.0 Schizoaffective disorder, bipolar type (principal); I10 Essential (primary) hypertension; Z20.822 Contact with and (suspected) exposure to COVID-19; Z79.899 Other long term (current) drug therapy; Z59.9 Problem related to housing and economic circumstances, unspecified
CPT/HCPCS: 80053; 80061; 83036; 84439; 84443; 85025; 90732; Q9967

== ENCOUNTER 2022-09-18 11:41 | Inpatient (IN) | payer MEDICAID ==
[~2022-09-18] VITALS: Ht 175.3 cm; Wt 104.3 kg
[2022-09-18] VITALS (8 sets, daily range): BP systolic 121–164; BP diastolic 65–93
[~2022-09-18 11:41] MED LIST changes: +DIVA-112 PO; -DIVA500T53 PO; +NALT50TA6 PO; -OMEG-135 PO; -PALI156D IM; +RISP2TAB45 PO; +RISP2TAB86 PO
[2022-09-18 12:51] LABS: GLUCOMETER DEV NAME(LOC) POC.BV
[2022-09-18] MEDS ORDERED: HydrOXYzine PAMOATE 50 MG CAPSULE PO PRN (13:15)
[2022-09-18] MEDS ORDERED: MAGNESIUM HYDROXIDE SUSPENSION 30 ML UDCUP PO PRN (13:15)
[2022-09-18] MEDS ORDERED: ZOLPIDEM TARTRATE 10 MG TABLET PO PRN (13:15)
[2022-09-18] MEDS ORDERED: LOPERAMIDE HCL 2 MG CAPSULE PO PRN (13:15)
[2022-09-18] MEDS ORDERED: PROMETHAZINE HCL 25 MG TABLET PO PRN (13:15)
[2022-09-18] MEDS ORDERED: GuaiFENesin/D-METHORPHAN [SUGAR-FREE] 200-20MG/10 ML SYRUP UDCUP PO PRN (13:15)
[2022-09-18] MEDS ORDERED: MAG HYDROX/AL HYDROX/SIMETH ES 30 ML SUSPENSION UDCUP PO PRN (13:15)
[2022-09-18] MEDS ORDERED: LORazepam 2 MG TABLET PO PRN ×2 (13:15)
[2022-09-18] MEDS ORDERED: PNEUMOCOCCAL VACCINE POLYVALENT 0.5 ML VIAL [PPSV23] IM. ONE (13:30)
[2022-09-18] MEDS ORDERED: LORazepam 2 MG TABLET PO ONE (14:45)
[2022-09-18] MEDS ORDERED: CYANOCOBALAMIN 1,000 MCG/ML VIAL IM ONE (16:00)
[2022-09-18] MEDS ORDERED: PALIPERIDONE PALMITATE 234 MG/1.5 ML SYRINGE IM ONE (16:00)
[2022-09-18] MEDS: THIAMINE 100 MG TABLET PO SCH (16:45)
[2022-09-18] MEDS: MELATONIN 5 MG TABLET PO SCH (20:31)
[2022-09-18] MEDS: OLANZapine 5 MG RAPDIS TABLET PO SCH (20:32)
[2022-09-18] MEDS: DIVALPROEX SODIUM 500 MG ER TABLET PO SCH (23:05)
[2022-09-19] VITALS (8 sets, daily range): BP systolic 105–137; BP diastolic 62–78
[2022-09-19] MEDS ORDERED: LORazepam 2 MG TABLET PO PRN (07:00)
[2022-09-19 07:59] LABS: CHOL/HDL RATIO 3.8 (4.2-7.3)
[2022-09-19 08:08] LABS: APPEARANCE,URINE CLEAR (CLEAR); BILIRUBIN,URINE NEGATIVE (NEGATIVE); GLUCOSE, URINE (UA) NEGATIVE (NEGATIVE); KETONES,URINE NEGATIVE (NEGATIVE); LEUKOCYTE ESTERASE ,URINE NEGATIVE (NEGATIVE); NITRATE,URINE NEGATIVE (NEGATIVE); OCCULT BLOOD,URINE NEGATIVE (NEGATIVE); PROTEIN,URINE NEGATIVE (NEGATIVE); SPECIFIC GRAVITIY, URINE 1.007 (1.003-1.030); UROBILINOGEN,URINE <=1.0 mg/dL (<=1.0)
[2022-09-19 08:10] LABS: BACTERIA,URINE None Seen /HPF (None Seen); RBC,URINE None Seen /HPF (0-2); WBC,URINE None Seen /HPF (0-5)
[2022-09-19 08:17] LABS: AMPHET/METH SCREEN,URINE POSITIVE (NEGATIVE); BARBITURATE SCREEN, URINE NEGATIVE (NEGATIVE); BENZODIAZEPINES SCREEN,URINE NEGATIVE (NEGATIVE); CANNABINOID SCREEN,URINE POSITIVE (NEGATIVE); COCAINE SCREEN,URINE NEGATIVE (NEGATIVE); METHADONE SCREEN, URINE NEGATIVE (NEGATIVE); OPIATE SCREEN,URINE NEGATIVE (NEGATIVE); PHENCYCLIDINE SCREEN,URINE NEGATIVE (NEGATIVE)
[2022-09-19 08:26] LABS: HEMOGLOBIN A1C 5.3 % (3.8-5.6)
[2022-09-19] MEDS: OMEGA-3/DHA/EPA/FISH OIL 1,000 MG CAPSULE PO SCH (08:57)
[2022-09-19] MEDS: FOLIC ACID 1 MG TABLET PO SCH (08:57)
[2022-09-19] MEDS: NALTREXONE HCL 50 MG TABLET PO SCH (08:57)
[2022-09-19] MEDS: MULTIVITAMINS WITH MINERALS, THERAPEUTIC TABLET PO SCH (08:57)
[2022-09-19] MEDS: THIAMINE 100 MG TABLET PO SCH ×2 (08:57→16:34)
[2022-09-19] MEDS: BACITRACIN 28 GM OINTMENT TP SCH ×2 (08:58→16:34)
[2022-09-19] MEDS: LORazepam 2 MG TABLET PO SCH ×4 (08:58→20:42)
[2022-09-19 15:56] LABS: GLUCOMETER DEV NAME(LOC) POC.BV
[2022-09-19] MEDS: OLANZapine 5 MG RAPDIS TABLET PO SCH (20:42)
[2022-09-19] MEDS: DIVALPROEX SODIUM 500 MG ER TABLET PO SCH (20:42)
[2022-09-19] MEDS: MELATONIN 5 MG TABLET PO SCH (20:42)
[2022-09-20 04:10] VITALS: BP 128/66
[2022-09-20 08:00] VITALS: BP 113/64
[2022-09-20] MEDS: MULTIVITAMINS WITH MINERALS, THERAPEUTIC TABLET PO SCH (08:32)
[2022-09-20] MEDS: THIAMINE 100 MG TABLET PO SCH ×2 (08:32→16:31)
[2022-09-20] MEDS: OMEGA-3/DHA/EPA/FISH OIL 1,000 MG CAPSULE PO SCH (08:32)
[2022-09-20] MEDS: NALTREXONE HCL 50 MG TABLET PO SCH (08:32)
[2022-09-20] MEDS: LORazepam 2 MG TABLET PO SCH ×4 (08:32→20:48)
[2022-09-20] MEDS: FOLIC ACID 1 MG TABLET PO SCH (08:32)
[2022-09-20] MEDS: BACITRACIN 28 GM OINTMENT TP SCH ×2 (08:36→16:32)
[2022-09-20 08:50] VITALS: BP 113/64
[2022-09-20 20:25] VITALS: BP 138/77
[2022-09-20] MEDS: DIVALPROEX SODIUM 500 MG ER TABLET PO SCH (20:48)
[2022-09-20] MEDS: OLANZapine 5 MG RAPDIS TABLET PO SCH (20:48)
[2022-09-20] MEDS: MELATONIN 5 MG TABLET PO SCH (20:48)
[2022-09-21] MEDS ORDERED: LORazepam 1 MG TABLET PO PRN (07:00)
[2022-09-21 08:54] VITALS: BP 130/70
[2022-09-21] MEDS: FOLIC ACID 1 MG TABLET PO SCH (09:36)
[2022-09-21] MEDS: MULTIVITAMINS WITH MINERALS, THERAPEUTIC TABLET PO SCH (09:36)
[2022-09-21] MEDS: NALTREXONE HCL 50 MG TABLET PO SCH (09:37)
[2022-09-21] MEDS: LORazepam 1 MG TABLET PO SCH ×4 (09:37→20:26)
[2022-09-21] MEDS: OMEGA-3/DHA/EPA/FISH OIL 1,000 MG CAPSULE PO SCH (09:37)
[2022-09-21] MEDS: THIAMINE 100 MG TABLET PO SCH ×2 (09:37→17:04)
[2022-09-21] MEDS: BACITRACIN 28 GM OINTMENT TP SCH ×2 (09:38→17:05)
[2022-09-21] MEDS ORDERED: LOPERAMIDE HCL 2 MG CAPSULE PO PRN (13:15)
[2022-09-21] MEDS: ACETAMINOPHEN 325 MG TABLET PO PRN (18:49)
[2022-09-21] MEDS: DIVALPROEX SODIUM 500 MG ER TABLET PO SCH (20:26)
[2022-09-21] MEDS: MELATONIN 5 MG TABLET PO SCH (20:27)
[2022-09-22] MEDS ORDERED: LORazepam 1 MG TABLET PO PRN (07:00)
[2022-09-22 08:29] VITALS: BP 106/67
[2022-09-22] MEDS: MULTIVITAMINS WITH MINERALS, THERAPEUTIC TABLET PO SCH (08:59)
[2022-09-22] MEDS: FOLIC ACID 1 MG TABLET PO SCH (08:59)
[2022-09-22] MEDS: OMEGA-3/DHA/EPA/FISH OIL 1,000 MG CAPSULE PO SCH (08:59)
[2022-09-22] MEDS: NALTREXONE HCL 50 MG TABLET PO SCH (08:59)
[2022-09-22] MEDS: BACITRACIN 28 GM OINTMENT TP SCH ×2 (09:00→17:04)
[2022-09-22] MEDS: THIAMINE 100 MG TABLET PO SCH ×2 (09:00→17:04)
[2022-09-22] MEDS ORDERED: PALIPERIDONE PALMITATE 156 MG/ML SYRINGE IM ONE (09:00)
[2022-09-22] MEDS: DIVALPROEX SODIUM 500 MG ER TABLET PO SCH (20:26)
[2022-09-22] MEDS: MELATONIN 5 MG TABLET PO SCH (20:26)
[2022-09-22 20:37] VITALS: BP 110/68
[2022-09-23] MEDS: OMEGA-3/DHA/EPA/FISH OIL 1,000 MG CAPSULE PO SCH (08:29)
[2022-09-23] MEDS: MULTIVITAMINS WITH MINERALS, THERAPEUTIC TABLET PO SCH (08:29)
[2022-09-23] MEDS: THIAMINE 100 MG TABLET PO SCH ×2 (08:29→17:04)
[2022-09-23] MEDS: FOLIC ACID 1 MG TABLET PO SCH (08:30)
[2022-09-23 08:31] VITALS: BP 138/95
[2022-09-23] MEDS: NALTREXONE HCL 50 MG TABLET PO SCH (08:38)
[2022-09-23] MEDS: BACITRACIN 28 GM OINTMENT TP SCH ×2 (08:39→17:05)
[2022-09-23] MEDS: GABAPENTIN 300 MG CAPSULE PO PRN (12:21)
[2022-09-23 20:30] VITALS: BP 142/85
[2022-09-23] MEDS: DIVALPROEX SODIUM 500 MG ER TABLET PO SCH (20:41)
[2022-09-23] MEDS: MELATONIN 5 MG TABLET PO SCH (20:41)
[2022-09-24 08:23] VITALS: BP 136/78
[2022-09-24] MEDS: OMEGA-3/DHA/EPA/FISH OIL 1,000 MG CAPSULE PO SCH (08:35)
[2022-09-24] MEDS: FOLIC ACID 1 MG TABLET PO SCH (08:35)
[2022-09-24] MEDS: MULTIVITAMINS WITH MINERALS, THERAPEUTIC TABLET PO SCH (08:35)
[2022-09-24] MEDS: NALTREXONE HCL 50 MG TABLET PO SCH (08:35)
[2022-09-24] MEDS: THIAMINE 100 MG TABLET PO SCH ×2 (08:35→16:00)
[2022-09-24] MEDS: BACITRACIN 28 GM OINTMENT TP SCH ×2 (08:37→16:01)
[2022-09-24] MEDS: GABAPENTIN 300 MG CAPSULE PO PRN (11:08)
[2022-09-24 11:30] LABS: GLUCOMETER DEV NAME(LOC) POC.BV
[2022-09-24] MEDS: OLANZapine 5 MG RAPDIS TABLET PO PRN (16:00)
[2022-09-24] MEDS: DIVALPROEX SODIUM 500 MG ER TABLET PO SCH (20:16)
[2022-09-24] MEDS: MELATONIN 5 MG TABLET PO SCH (20:17)
[2022-09-24 20:47] VITALS: BP 132/78
[2022-09-25 00:07] VITALS: BP 132/84
[2022-09-25] MEDS: ACETAMINOPHEN 325 MG TABLET PO PRN (00:11)
[2022-09-25 08:30] VITALS: BP 127/64
[2022-09-25] MEDS: FOLIC ACID 1 MG TABLET PO SCH (09:37)
[2022-09-25] MEDS: BACITRACIN 28 GM OINTMENT TP SCH ×2 (09:37→16:49)
[2022-09-25] MEDS: NALTREXONE HCL 50 MG TABLET PO SCH (09:37)
[2022-09-25] MEDS: MULTIVITAMINS WITH MINERALS, THERAPEUTIC TABLET PO SCH (09:37)
[2022-09-25] MEDS: OMEGA-3/DHA/EPA/FISH OIL 1,000 MG CAPSULE PO SCH (09:37)
[2022-09-25] MEDS: THIAMINE 100 MG TABLET PO SCH ×2 (09:37→16:49)
[2022-09-25] MEDS: GABAPENTIN 300 MG CAPSULE PO PRN (12:43)
[2022-09-25] MEDS: MELATONIN 5 MG TABLET PO SCH (20:35)
[2022-09-25] MEDS: DIVALPROEX SODIUM 500 MG ER TABLET PO SCH (20:35)
[2022-09-25 20:36] VITALS: BP 135/86
[2022-09-26 03:57] VITALS: BP 122/85
[2022-09-26] MEDS: GABAPENTIN 300 MG CAPSULE PO PRN (04:03)
[2022-09-26 08:48] VITALS: BP 132/60
[2022-09-26] MEDS: NALTREXONE HCL 50 MG TABLET PO SCH (09:03)
[2022-09-26] MEDS: BACITRACIN 28 GM OINTMENT TP SCH ×2 (09:03→16:53)
[2022-09-26] MEDS: MULTIVITAMINS WITH MINERALS, THERAPEUTIC TABLET PO SCH (09:03)
[2022-09-26] MEDS: OMEGA-3/DHA/EPA/FISH OIL 1,000 MG CAPSULE PO SCH (09:03)
[2022-09-26] MEDS: THIAMINE 100 MG TABLET PO SCH ×2 (09:03→16:53)
[2022-09-26] MEDS: FOLIC ACID 1 MG TABLET PO SCH (09:03)
[2022-09-26] MEDS: OLANZapine 5 MG RAPDIS TABLET PO SCH (12:40)
[2022-09-26 20:39] VITALS: BP 124/80
[2022-09-26] MEDS: MELATONIN 5 MG TABLET PO SCH (21:22)
[2022-09-26] MEDS: DIVALPROEX SODIUM 500 MG ER TABLET PO SCH (21:23)
[2022-09-27 08:33] VITALS: BP 103/60
[2022-09-27] MEDS: MULTIVITAMINS WITH MINERALS, THERAPEUTIC TABLET PO SCH (09:27)
[2022-09-27] MEDS: THIAMINE 100 MG TABLET PO SCH ×2 (09:27→16:39)
[2022-09-27] MEDS: NALTREXONE HCL 50 MG TABLET PO SCH (09:27)
[2022-09-27] MEDS: FOLIC ACID 1 MG TABLET PO SCH (09:27)
[2022-09-27] MEDS: BACITRACIN 28 GM OINTMENT TP SCH ×2 (09:28→16:39)
[2022-09-27] MEDS: OLANZapine 5 MG RAPDIS TABLET PO SCH (09:28)
[2022-09-27] MEDS: OMEGA-3/DHA/EPA/FISH OIL 1,000 MG CAPSULE PO SCH (09:28)
[2022-09-27] MEDS: GABAPENTIN 300 MG CAPSULE PO PRN (19:15)
[2022-09-27 20:30] VITALS: BP 138/74
[2022-09-27] MEDS: DIVALPROEX SODIUM 500 MG ER TABLET PO SCH (20:39)
[2022-09-27] MEDS: MELATONIN 5 MG TABLET PO SCH (20:39)
[2022-09-28 08:44] VITALS: BP 131/73
[2022-09-28] MEDS: OMEGA-3/DHA/EPA/FISH OIL 1,000 MG CAPSULE PO SCH (08:58)
[2022-09-28] MEDS: THIAMINE 100 MG TABLET PO SCH (08:58)
[2022-09-28] MEDS: MULTIVITAMINS WITH MINERALS, THERAPEUTIC TABLET PO SCH (08:58)
[2022-09-28] MEDS: FOLIC ACID 1 MG TABLET PO SCH (08:59)
[2022-09-28] MEDS: OLANZapine 5 MG RAPDIS TABLET PO SCH (08:59)
[2022-09-28] MEDS: NALTREXONE HCL 50 MG TABLET PO SCH (08:59)
[2022-09-28] MEDS: BACITRACIN 28 GM OINTMENT TP SCH ×2 (09:00→18:11)
[2022-09-28] MEDS: OLANZapine 5 MG RAPDIS TABLET PO PRN (14:12)
[2022-09-28 20:38] VITALS: BP 115/64
[2022-09-28] MEDS ORDERED: ESZOPICLONE 3 MG TABLET PO SCH (21:00)
[2022-09-28] MEDS: DIVALPROEX SODIUM 500 MG ER TABLET PO SCH (21:41)
[2022-09-28] MEDS: MELATONIN 5 MG TABLET PO SCH (21:42)
[2022-09-29] MEDS: NALTREXONE HCL 50 MG TABLET PO SCH (08:40)
[2022-09-29] MEDS: MULTIVITAMINS WITH MINERALS, THERAPEUTIC TABLET PO SCH (08:40)
[2022-09-29] MEDS: OMEGA-3/DHA/EPA/FISH OIL 1,000 MG CAPSULE PO SCH (08:40)
[2022-09-29] MEDS: BACITRACIN 28 GM OINTMENT TP SCH (08:41)
[2022-09-29 08:46] VITALS: BP 139/94
[2022-09-29] MEDS: OLANZapine 5 MG RAPDIS TABLET PO SCH (09:14)
[2022-09-29] MEDS ORDERED: ESZO3TAB53 PO (12:40)
[2022-09-29] MEDS ORDERED: DIVA-112 PO (12:40)
[2022-09-29] MEDS ORDERED: MELA5TAB40 PO (12:41)
[2022-09-29] MEDS ORDERED: OLAN5TAB52 PO (12:41)
[2022-09-29] MEDS ORDERED: NALT50TA6 PO (12:42)
== END 2022-09-29 13:00 | disposition home or self-care (01) | DRG 750 ==
LOC: B2S 12:58
PROVIDERS: ADMIT Psychiatry & Neurology Psychiatry; ATTEND Psychiatry & Neurology Psychiatry
DX: F25.9 Schizoaffective disorder, unspecified (principal); F22 Delusional disorders; Z20.822 Contact with and (suspected) exposure to COVID-19; Z55.9 Problems related to education and literacy, unspecified; F10.20 Alcohol dependence, uncomplicated; F06.30 Mood disorder due to known physiological condition, unspecified; F17.210 Nicotine dependence, cigarettes, uncomplicated; Z65.3 Problems related to other legal circumstances; Z59.9 Problem related to housing and economic circumstances, unspecified; Z63.9 Problem related to primary support group, unspecified
CPT/HCPCS: 80061; 80164; 80307; 81001; 83036; 84132; 86592; J3420; Q9967

== ENCOUNTER 2023-04-20 16:34 | Inpatient (IN) | payer MEDICAID, OTHER ==
[~2023-04-20] VITALS: Ht 175.3 cm; Wt 98.0 kg
[~2023-04-20 16:34] MED LIST changes: +ESZO3TAB53 PO; -NALT50TA6 PO; +OLAN5TAB52 PO; -RISP2TAB45 PO; -RISP2TAB86 PO
[2023-04-20] MEDS ORDERED: ZOLPIDEM TARTRATE 10 MG TABLET PO PRN (17:45)
[2023-04-20] MEDS ORDERED: HALOPERIDOL 5 MG TABLET PO PRN (17:45)
[2023-04-20] MEDS ORDERED: DIVA500T53 PO (17:46)
[2023-04-20 18:17] LABS: BASOPHILS % (AUTO) 0.5 % (0.0-2.0); EOSINOPHILS % (AUTO) 0.3 % (1.0-6.0); HEMATOCRIT 44.9 % (41-53); HEMOGLOBIN 15.6 g/dL (13.5-17.5); LYMPHOCYTES # (AUTO) 2.4 K/uL (1.0-4.8); LYMPHOCYTES % (AUTO) 18.5 % (22.0-44.0); MEAN CORPUSCULAR HEMOGLOBIN 30.7 pg (26.0-34.0); MEAN CORPUSCULAR HGB CONC 34.9 G/dL (31.0-37.0); MEAN CORPUSCULAR VOLUME 88 fL (80-100); MONOCYTES # (AUTO) 1.3 K/uL (0.1-1.0); MONOCYTES % (AUTO) 10.2 % (2.0-9.0); NEUTROPHILS # (AUTO) 9.3 K/uL (1.8-7.7); NEUTROPHILS % (AUTO) 70.5 % (40.0-70.0); PLATELET COUNT (AUTO) 386 K/uL (150-450); WHITE BLOOD COUNT (AUTO) 13.1 K/uL (4.5-11.0)
[2023-04-20 18:20] LABS: ANION GAP 10 mmol/L (8-16); CALCIUM, TOTAL 9.5 mg/dL (8.8-10.5); CARBON DIOXIDE 25 mmol/L (22-29); CHLORIDE 102 mmol/L (98-107); CREATININE 0.78 mg/dL (0.60-1.30); GLOMERULAR FILTR. RATE CALC > 60 mL/min (>60); GLUCOSE,RANDOM 101 mg/dL (70-110); POTASSIUM 3.1 mmol/L (3.5-5.1); SODIUM SERUM 137 mmol/L (136-145); UREA NITROGEN, BLOOD 9 mg/dL (7-18)
[2023-04-20 18:26] LABS: ALANINE AMINOTRANSFERASE 36 U/L (12-78); ALBUMIN 4.6 g/dL (3.4-5.0); ALKALINE PHOSPHATASE 81 U/L (46-116); ASPARTATE AMINOTRANSFERASE 30 U/L (15-37); BILIRUBIN,TOTAL 1.4 mg/dL (0.1-1.0); TOTAL PROTEIN, SERUM 9.3 g/dL (6.4-8.2)
[2023-04-20] MEDS ORDERED: POTASSIUM CHLORIDE 20 MEQ ER TABLET PO ONE (18:30)
[2023-04-20] MEDS: LORazepam 2 MG TABLET PO PRN ×2 (18:35→23:11)
[2023-04-20 18:55] LABS: ALCOHOL, BLOOD (SERUM) < 3 mg/dL (0-10)
[2023-04-20 19:45] LABS: COVID AG,FIA SOURCE NASAL SWAB
[2023-04-20 19:49] LABS: APPEARANCE,URINE CLEAR (CLEAR); BILIRUBIN,URINE NEGATIVE (NEGATIVE); COLOR,URINE YELLOW (YELLOW); GLUCOSE, URINE (UA) NEGATIVE (NEGATIVE); KETONES,URINE 80-100 mg/dL (NEGATIVE); LEUKOCYTE ESTERASE ,URINE NEGATIVE (NEGATIVE); NITRATE,URINE NEGATIVE (NEGATIVE); OCCULT BLOOD,URINE NEGATIVE (NEGATIVE); PROTEIN,URINE 30-70 mg/dL (NEGATIVE); SPECIFIC GRAVITIY, URINE 1.021 (1.003-1.030); UROBILINOGEN,URINE <=1.0 mg/dL (<=1.0)
[2023-04-20 19:54] LABS: SARS-COV2 (COVID) ANTIGEN,FIA Negative (Negative)
[2023-04-20 19:56] LABS: ALCOHOL, URINE DRUG SCREEN NEGATIVE (NEGATIVE); AMPHET/METH SCREEN,URINE POSITIVE (NEGATIVE); BARBITURATE SCREEN, URINE NEGATIVE (NEGATIVE); BENZODIAZEPINES SCREEN,URINE NEGATIVE (NEGATIVE); CANNABINOID SCREEN,URINE POSITIVE (NEGATIVE); COCAINE SCREEN,URINE NEGATIVE (NEGATIVE); METHADONE SCREEN, URINE NEGATIVE (NEGATIVE); OPIATE SCREEN,URINE NEGATIVE (NEGATIVE); PHENCYCLIDINE SCREEN,URINE NEGATIVE (NEGATIVE)
[2023-04-20 22:51] VITALS: BP 145/87; PULSE 100; RESP 18; TEMP 97.8; O2SAT 97
[2023-04-21] MEDS ORDERED: PNEUMOCOCCAL VACCINE POLYVALENT 0.5 ML SYRINGE [PPSV23] IM. ONE (02:45)
[2023-04-21] MEDS ORDERED: ONDANSETRON HCL 4 MG TABLET PO PRN (08:00)
[2023-04-21] MEDS ORDERED: MAG HYDROX/ALUMINUM HYD/SIMETH ES 30 ML SUSPENSION UDCUP PO PRN (08:00)
[2023-04-21] MEDS ORDERED: ACETAMINOPHEN 325 MG TABLET PO PRN (08:00)
[2023-04-21] MEDS ORDERED: DOCUSATE SODIUM 100 MG CAPSULE PO PRN (08:00)
[2023-04-21] MEDS ORDERED: IBUPROFEN 600 MG TABLET PO PRN (08:00)
[2023-04-21] MEDS ORDERED: OMEPRAZOLE 20 MG CAPSULE PO PRN (08:00)
[2023-04-21] MEDS ORDERED: PETROLATUM,WHITE 28 GM JELLY TP PRN (08:00)
[2023-04-21] MEDS ORDERED: BACITRACIN 28 GM OINTMENT TP PRN (08:00)
[2023-04-21] MEDS ORDERED: MAGNESIUM HYDROXIDE SUSPENSION 30 ML UDCUP PO PRN (08:00)
[2023-04-21] MEDS ORDERED: BENZOCAINE/MENTHOL LOZENGE PO PRN (08:00)
[2023-04-21] MEDS ORDERED: ALBUTEROL SULFATE HFA 90 MCG/PUFF 8 GM INHALER IH PRN (08:00)
[2023-04-21] MEDS ORDERED: LOPERAMIDE HCL 2 MG CAPSULE PO PRN (08:00)
[2023-04-21] MEDS ORDERED: CloNIDine HCL 0.1 MG TABLET PO PRN (08:00)
[2023-04-21 09:59] VITALS: BP 136/83; PULSE 88; RESP 18; TEMP 98.2; O2SAT 97
[2023-04-21] MEDS: LORazepam 2 MG TABLET PO PRN (11:04)
[2023-04-21] MEDS: QUEtiapine FUMARATE 300 MG TABLET PO SCH (20:10)
[2023-04-21 21:11] VITALS: BP 105/63; PULSE 67; RESP 18; TEMP 97.8; O2SAT 97
[2023-04-22 08:53] VITALS: BP 124/75; PULSE 73; RESP 17; TEMP 97.6; O2SAT 98
[2023-04-22] MEDS: LORazepam 2 MG TABLET PO PRN ×2 (11:47→17:19)
[2023-04-22] MEDS: QUEtiapine FUMARATE 300 MG TABLET PO SCH (20:13)
[2023-04-22 20:15] VITALS: BP 129/82; PULSE 70; RESP 17; TEMP 98; O2SAT 97
[2023-04-23 08:10] VITALS: BP 127/79; PULSE 80; RESP 18; TEMP 97.8; O2SAT 99
[2023-04-23] MEDS: LORazepam 2 MG TABLET PO PRN ×2 (09:06→16:32)
[2023-04-23] MEDS: QUEtiapine FUMARATE 300 MG TABLET PO SCH (20:13)
[2023-04-23 20:52] VITALS: BP 132/76; PULSE 100; RESP 17; TEMP 98.3; O2SAT 98
[2023-04-24 08:36] VITALS: BP 110/68; PULSE 61; RESP 18; TEMP 98.9; O2SAT 98
[2023-04-24] MEDS: LORazepam 2 MG TABLET PO PRN ×2 (11:22→16:37)
[2023-04-24 20:17] VITALS: BP 124/65; PULSE 76; RESP 18; TEMP 98.3
[2023-04-24] MEDS: QUEtiapine FUMARATE 300 MG TABLET PO SCH (20:24)
[2023-04-25 09:00] VITALS: BP 110/61; PULSE 63; RESP 17; TEMP 98; O2SAT 98
[2023-04-25] MEDS: LORazepam 2 MG TABLET PO PRN (10:26)
[2023-04-25] MEDS ORDERED: QUET300T2 PO (12:14)
== END 2023-04-25 15:25 | disposition home or self-care (01) | DRG 750 ==
LOC: EMS 16:34 → B2S 20:25
PROVIDERS: ADMIT Psychiatry & Neurology Psychiatry; ATTEND Psychiatry & Neurology Psychiatry
DX: F25.1 Schizoaffective disorder, depressive type (principal); R45.851 Suicidal ideations; F17.210 Nicotine dependence, cigarettes, uncomplicated; F41.9 Anxiety disorder, unspecified; G47.00 Insomnia, unspecified; F12.10 Cannabis abuse, uncomplicated; K21.9 Gastro-esophageal reflux disease without esophagitis; E87.6 Hypokalemia; Z28.21 Immunization not carried out because of patient refusal; Z79.899 Other long term (current) drug therapy; Z20.822 Contact with and (suspected) exposure to COVID-19
CPT/HCPCS: 80053; 80307; 81003; 85025; 99285; G0480

== ENCOUNTER 2023-04-30 10:52 | Inpatient (IN) | payer MEDICAID ==
[~2023-04-30] VITALS: Ht 175.3 cm; Wt 96.2 kg
[~2023-04-30 10:52] MED LIST changes: -DIVA-112 PO; -ESZO3TAB53 PO; -MELA5TAB40 PO; -NALT50TA PO; -OLAN5TAB52 PO; +QUET300T2 PO
[2023-04-30 12:14] LABS: BASOPHILS % (AUTO) 0.5 % (0.0-2.0); EOSINOPHILS % (AUTO) 0.1 % (1.0-6.0); HEMATOCRIT 42.3 % (41-53); HEMOGLOBIN 14.8 g/dL (13.5-17.5); LYMPHOCYTES # (AUTO) 2.1 K/uL (1.0-4.8); LYMPHOCYTES % (AUTO) 19.3 % (22.0-44.0); MEAN CORPUSCULAR HEMOGLOBIN 30.9 pg (26.0-34.0); MEAN CORPUSCULAR HGB CONC 34.9 G/dL (31.0-37.0); MEAN CORPUSCULAR VOLUME 88 fL (80-100); MONOCYTES # (AUTO) 0.9 K/uL (0.1-1.0); MONOCYTES % (AUTO) 8.5 % (2.0-9.0); NEUTROPHILS % (AUTO) 71.6 % (40.0-70.0); PLATELET COUNT (AUTO) 333 K/uL (150-450); RED BLOOD CELL COUNT(AUTO) 4.78 MIL/uL (4.50-5.90); RED CELL DISTRIBUTION WIDTH 14.9 % (11.5-14.5); WHITE BLOOD COUNT (AUTO) 11.1 K/uL (4.5-11.0)
[2023-04-30] MEDS ORDERED: HALOPERIDOL 5 MG TABLET PO PRN (12:15)
[2023-04-30 12:25] LABS: ANION GAP 10 mmol/L (8-16); CALCIUM, TOTAL 9.2 mg/dL (8.8-10.5); CARBON DIOXIDE 25 mmol/L (22-29); CHLORIDE 103 mmol/L (98-107); CREATININE 0.82 mg/dL (0.60-1.30); GLOMERULAR FILTR. RATE CALC > 60 mL/min (>60); GLUCOSE,RANDOM 101 mg/dL (70-110); POTASSIUM 3.4 mmol/L (3.5-5.1); SODIUM SERUM 138 mmol/L (136-145); UREA NITROGEN, BLOOD 6 mg/dL (7-18)
[2023-04-30 12:31] LABS: ALANINE AMINOTRANSFERASE 30 U/L (12-78); ALBUMIN 4.5 g/dL (3.4-5.0); ALKALINE PHOSPHATASE 80 U/L (46-116); ASPARTATE AMINOTRANSFERASE 29 U/L (15-37); BILIRUBIN,TOTAL 0.8 mg/dL (0.1-1.0); TOTAL PROTEIN, SERUM 8.7 g/dL (6.4-8.2)
[2023-04-30 12:34] LABS: ALCOHOL, BLOOD (SERUM) < 3 mg/dL (0-10)
[2023-04-30 12:37] LABS: APPEARANCE,URINE CLEAR (CLEAR); BILIRUBIN,URINE NEGATIVE (NEGATIVE); COLOR,URINE LIGHT YELLOW (YELLOW); GLUCOSE, URINE (UA) NEGATIVE (NEGATIVE); KETONES,URINE 40-60 mg/dL (NEGATIVE); LEUKOCYTE ESTERASE ,URINE NEGATIVE (NEGATIVE); NITRATE,URINE NEGATIVE (NEGATIVE); OCCULT BLOOD,URINE NEGATIVE (NEGATIVE); PROTEIN,URINE TRACE mg/dL (NEGATIVE); SPECIFIC GRAVITIY, URINE 1.014 (1.003-1.030); UROBILINOGEN,URINE <=1.0 mg/dL (<=1.0)
[2023-04-30 12:45] LABS: AMPHET/METH SCREEN,URINE POSITIVE (NEGATIVE); BARBITURATE SCREEN, URINE NEGATIVE (NEGATIVE); BENZODIAZEPINES SCREEN,URINE NEGATIVE (NEGATIVE); CANNABINOID SCREEN,URINE POSITIVE (NEGATIVE); COCAINE SCREEN,URINE NEGATIVE (NEGATIVE); METHADONE SCREEN, URINE NEGATIVE (NEGATIVE); OPIATE SCREEN,URINE NEGATIVE (NEGATIVE); PHENCYCLIDINE SCREEN,URINE NEGATIVE (NEGATIVE)
[2023-04-30 12:46] LABS: ALCOHOL, URINE DRUG SCREEN NEGATIVE (NEGATIVE)
[2023-04-30] MEDS ORDERED: QUEtiapine FUMARATE 100 MG TABLET PO ONE (14:00)
[2023-04-30] MEDS ORDERED: LORazepam 1 MG TABLET PO ONE (14:00)
[2023-04-30] MEDS ORDERED: POTASSIUM CHLORIDE 10% 40 MEQ/30 ML LIQUID UDCUP PO ONE (14:00)
[2023-04-30 15:07] LABS: COVID AG,FIA SOURCE NASAL SWAB
[2023-04-30 15:39] LABS: SARS-COV2 (COVID) ANTIGEN,FIA Negative (Negative)
[2023-04-30] MEDS ORDERED: PNEUMOCOCCAL VACCINE POLYVALENT 0.5 ML SYRINGE [PPSV23] IM. ONE (17:45)
[2023-04-30] MEDS ORDERED: INFLUENZA VIRUS VACCINE QVS 2023-24 (6MO+)/PF 60 MCG/0.5 ML SYRINGE IM. ONE (17:45)
[2023-04-30 18:00] VITALS: BP 137/90; PULSE 85; RESP 18; TEMP 97.4; O2SAT 98
[2023-04-30 20:00] VITALS: BP 130/68; PULSE 88; RESP 18; TEMP 98; O2SAT 96
[2023-04-30] MEDS: LORazepam 2 MG TABLET PO PRN (20:31)
[2023-04-30] MEDS: ZOLPIDEM TARTRATE 10 MG TABLET PO PRN (21:24)
[2023-05-01 00:30] VITALS: BP 131/66; PULSE 88; RESP 20; TEMP 98.2; O2SAT 96
[2023-05-01] MEDS ORDERED: ALBUTEROL SULFATE HFA 90 MCG/PUFF 8 GM INHALER IH PRN (07:30)
[2023-05-01] MEDS ORDERED: BENZOCAINE/MENTHOL LOZENGE PO PRN (07:30)
[2023-05-01] MEDS ORDERED: OMEPRAZOLE 20 MG CAPSULE PO PRN (07:30)
[2023-05-01] MEDS ORDERED: CloNIDine HCL 0.1 MG TABLET PO PRN (07:30)
[2023-05-01] MEDS ORDERED: DOCUSATE SODIUM 100 MG CAPSULE PO PRN (07:30)
[2023-05-01] MEDS ORDERED: MAG HYDROX/ALUMINUM HYD/SIMETH ES 30 ML SUSPENSION UDCUP PO PRN (07:30)
[2023-05-01] MEDS ORDERED: ACETAMINOPHEN 325 MG TABLET PO PRN (07:30)
[2023-05-01] MEDS ORDERED: LOPERAMIDE HCL 2 MG CAPSULE PO PRN (07:30)
[2023-05-01] MEDS ORDERED: MAGNESIUM HYDROXIDE SUSPENSION 30 ML UDCUP PO PRN (07:30)
[2023-05-01] MEDS ORDERED: BACITRACIN 28 GM OINTMENT TP PRN (07:30)
[2023-05-01] MEDS ORDERED: PETROLATUM,WHITE 28 GM JELLY TP PRN (07:30)
[2023-05-01] MEDS ORDERED: IBUPROFEN 600 MG TABLET PO PRN (07:30)
[2023-05-01] MEDS ORDERED: ONDANSETRON HCL 4 MG TABLET PO PRN (07:30)
[2023-05-01 08:30] VITALS: BP 119/74; PULSE 85; RESP 18; TEMP 97.6; O2SAT 95
[2023-05-01] MEDS: LORazepam 2 MG TABLET PO PRN ×2 (10:38→18:42)
[2023-05-01 20:47] VITALS: BP 133/82; PULSE 86; RESP 18; TEMP 97.7
[2023-05-01] MEDS ORDERED: QUEtiapine FUMARATE 300 MG TABLET PO SCH (21:00)
[2023-05-01] MEDS: QUEtiapine FUMARATE 300 MG TABLET PO SCH (21:13)
[2023-05-01] MEDS: ZOLPIDEM TARTRATE 10 MG TABLET PO PRN (21:13)
[2023-05-02] MEDS: LORazepam 2 MG TABLET PO PRN (16:16)
[2023-05-02 17:45] VITALS: BP 122/61; PULSE 90; RESP 18; TEMP 97.9; O2SAT 97
[2023-05-02] MEDS: QUEtiapine FUMARATE 300 MG TABLET PO SCH (20:27)
[2023-05-02 21:18] VITALS: BP 138/81; PULSE 85; RESP 18; TEMP 98; O2SAT 99
[2023-05-03 09:39] VITALS: BP 106/73; PULSE 62; RESP 16; TEMP 97.7; O2SAT 98
[2023-05-03 09:42] VITALS: BP 106/73; PULSE 62; RESP 16; TEMP 97.7; O2SAT 98
[2023-05-03] MEDS: LORazepam 2 MG TABLET PO PRN ×2 (12:42→16:44)
[2023-05-03] MEDS: ZOLPIDEM TARTRATE 10 MG TABLET PO PRN (20:07)
[2023-05-03] MEDS: QUEtiapine FUMARATE 300 MG TABLET PO SCH (20:07)
[2023-05-03 20:47] VITALS: BP_SYST 121; BP_SYST 140; BP_DIAS 97; PULSE 77; RESP 18; TEMP 97.8; O2SAT 97; O2SAT 98
[2023-05-04 09:20] VITALS: BP 106/65; PULSE 59; RESP 16; TEMP 98.6; O2SAT 98
[2023-05-04] MEDS: LORazepam 2 MG TABLET PO PRN ×2 (12:05→16:38)
[2023-05-04 20:36] VITALS: BP 121/76; PULSE 95; RESP 17; TEMP 97.8; O2SAT 97
[2023-05-04] MEDS: ZOLPIDEM TARTRATE 10 MG TABLET PO PRN (21:45)
[2023-05-04] MEDS: QUEtiapine FUMARATE 300 MG TABLET PO SCH (21:45)
[2023-05-05 08:39] VITALS: BP 100/60; PULSE 78; RESP 17; TEMP 98; O2SAT 100
[2023-05-05] MEDS: LORazepam 2 MG TABLET PO PRN ×2 (10:10→15:42)
[2023-05-05] MEDS: QUEtiapine FUMARATE 300 MG TABLET PO SCH (20:06)
[2023-05-05] MEDS: ZOLPIDEM TARTRATE 10 MG TABLET PO PRN (20:06)
[2023-05-05 20:37] VITALS: BP 126/63; PULSE 83; RESP 17; TEMP 98.2; O2SAT 98
[2023-05-06 09:17] VITALS: BP 124/82; PULSE 83; RESP 17; TEMP 98; O2SAT 99
[2023-05-06] MEDS: LORazepam 2 MG TABLET PO PRN ×2 (10:43→16:21)
[2023-05-06] MEDS: QUEtiapine FUMARATE 300 MG TABLET PO SCH (21:06)
[2023-05-06] MEDS: ZOLPIDEM TARTRATE 10 MG TABLET PO PRN (21:56)
[2023-05-06 23:02] VITALS: BP 123/86; PULSE 77; RESP 18; TEMP 97.5; O2SAT 100
[2023-05-07 08:44] VITALS: RESP 17; TEMP 97.9
[2023-05-07] MEDS: LORazepam 2 MG TABLET PO PRN (10:35)
== END 2023-05-07 15:02 | disposition home or self-care (01) | DRG 750 ==
LOC: EMS 11:09 → B2S 15:14
PROVIDERS: ADMIT Psychiatry & Neurology Psychiatry; ATTEND Psychiatry & Neurology Psychiatry
DX: F25.1 Schizoaffective disorder, depressive type (principal); F29 Unspecified psychosis not due to a substance or known physiological condition; E87.6 Hypokalemia; F31.9 Bipolar disorder, unspecified; F41.9 Anxiety disorder, unspecified; K21.9 Gastro-esophageal reflux disease without esophagitis; G47.00 Insomnia, unspecified; Z20.822 Contact with and (suspected) exposure to COVID-19; R07.89 Other chest pain; F19.10 Other psychoactive substance abuse, uncomplicated; Z79.899 Other long term (current) drug therapy; Z87.891 Personal history of nicotine dependence
CPT/HCPCS: 80053; 80307; 81003; 85025; 93005; 99285; G0480

== ENCOUNTER 2023-05-11 06:56 | Inpatient (IN) | payer MEDICAID, OTHER ==
[~2023-05-11] VITALS: Ht 175.3 cm; Wt 97.5 kg
[2023-05-11 08:04] LABS: BASOPHILS % (AUTO) 0.1 % (0.0-2.0); EOSINOPHILS % (AUTO) 0 % (1.0-6.0); HEMATOCRIT 42.8 % (41-53); LYMPHOCYTES # (AUTO) 0.8 K/uL (1.0-4.8); MEAN CORPUSCULAR HEMOGLOBIN 30.8 pg (26.0-34.0); MEAN CORPUSCULAR VOLUME 88 fL (80-100); MONOCYTES # (AUTO) 0.1 K/uL (0.1-1.0); MONOCYTES % (AUTO) 0.8 % (2.0-9.0); NEUTROPHILS # (AUTO) 8.3 K/uL (1.8-7.7); PLATELET COUNT (AUTO) 331 K/uL (150-450); RED BLOOD CELL COUNT(AUTO) 4.86 MIL/uL (4.50-5.90); RED CELL DISTRIBUTION WIDTH 14.6 % (11.5-14.5); WHITE BLOOD COUNT (AUTO) 9.3 K/uL (4.5-11.0)
[2023-05-11 08:05] LABS: NEUTROPHILS % (AUTO) 90.1 % (40.0-70.0); RBC MORPHOLOGY COMMENT NORMAL RBC MORPH
[2023-05-11 08:19] LABS: ANION GAP 11 mmol/L (8-16); CALCIUM, TOTAL 9.2 mg/dL (8.8-10.5); CARBON DIOXIDE 25 mmol/L (22-29); CHLORIDE 105 mmol/L (98-107); GLOMERULAR FILTR. RATE CALC > 60 mL/min (>60); GLUCOSE,RANDOM 116 mg/dL (70-110); POTASSIUM 3.8 mmol/L (3.5-5.1); SODIUM SERUM 141 mmol/L (136-145); UREA NITROGEN, BLOOD 6 mg/dL (7-18)
[2023-05-11 08:24] LABS: ALANINE AMINOTRANSFERASE 39 U/L (12-78); ALBUMIN 4.2 g/dL (3.4-5.0); ALCOHOL, BLOOD (SERUM) < 3 mg/dL (0-10); ALKALINE PHOSPHATASE 81 U/L (46-116); ASPARTATE AMINOTRANSFERASE 25 U/L (15-37); BILIRUBIN,TOTAL 0.6 mg/dL (0.1-1.0); TOTAL PROTEIN, SERUM 8.6 g/dL (6.4-8.2)
[2023-05-11 09:10] LABS: COVID AG,FIA SOURCE NASAL SWAB
[2023-05-11] MEDS ORDERED: LORazepam 2 MG TABLET PO PRN (09:30)
[2023-05-11] MEDS ORDERED: HALOPERIDOL 5 MG TABLET PO PRN (09:30)
[2023-05-11] MEDS ORDERED: ZOLPIDEM TARTRATE 10 MG TABLET PO PRN (09:30)
[2023-05-11 09:53] LABS: SARS-COV2 (COVID) ANTIGEN,FIA Positive (Negative)
[2023-05-11] MEDS ORDERED: LORazepam 1 MG TABLET PO ONE (10:00)
[2023-05-11] MEDS ORDERED: QUEtiapine FUMARATE 100 MG TABLET PO ONE (10:00)
[2023-05-11 14:30] VITALS: BP 157/102; PULSE 100; RESP 18; TEMP 97.8; O2SAT 96
[2023-05-11] MEDS ORDERED: INFLUENZA VIRUS VACCINE QVS 2023-24 (6MO+)/PF 60 MCG/0.5 ML SYRINGE IM. ONE (15:30)
[2023-05-11] MEDS ORDERED: PNEUMOCOCCAL VACCINE POLYVALENT 0.5 ML SYRINGE [PPSV23] IM. ONE (15:30)
[2023-05-11 16:00] VITALS: BP 152/98; PULSE 98; RESP 19; TEMP 97.3; O2SAT 99
[2023-05-11] MEDS: LORazepam 2 MG TABLET PO PRN (18:45)
[2023-05-11] MEDS: ZOLPIDEM TARTRATE 10 MG TABLET PO PRN (20:55)
[2023-05-11] MEDS: HALOPERIDOL 5 MG TABLET PO PRN (20:56)
[2023-05-11 23:32] VITALS: BP 138/88; PULSE 96; RESP 18; TEMP 97.7; O2SAT 97
[2023-05-12] MEDS: LORazepam 2 MG TABLET PO PRN ×2 (09:09→16:18)
[2023-05-12] MEDS ORDERED: LOPERAMIDE HCL 2 MG CAPSULE PO PRN (12:15)
[2023-05-12] MEDS ORDERED: MAGNESIUM HYDROXIDE SUSPENSION 30 ML UDCUP PO PRN (12:15)
[2023-05-12] MEDS ORDERED: ACETAMINOPHEN 325 MG TABLET PO PRN (12:15)
[2023-05-12] MEDS ORDERED: BACITRACIN 28 GM OINTMENT TP PRN (12:15)
[2023-05-12] MEDS ORDERED: PETROLATUM,WHITE 28 GM JELLY TP PRN (12:15)
[2023-05-12] MEDS ORDERED: BENZOCAINE/MENTHOL LOZENGE PO PRN (12:15)
[2023-05-12] MEDS ORDERED: IBUPROFEN 600 MG TABLET PO PRN (12:15)
[2023-05-12] MEDS ORDERED: MAG HYDROX/ALUMINUM HYD/SIMETH ES 30 ML SUSPENSION UDCUP PO PRN (12:15)
[2023-05-12] MEDS ORDERED: OMEPRAZOLE 20 MG CAPSULE PO PRN (12:15)
[2023-05-12] MEDS ORDERED: ALBUTEROL SULFATE HFA 90 MCG/PUFF 8 GM INHALER IH PRN (12:15)
[2023-05-12] MEDS ORDERED: CloNIDine HCL 0.1 MG TABLET PO PRN (12:15)
[2023-05-12] MEDS ORDERED: ONDANSETRON HCL 4 MG TABLET PO PRN (12:15)
[2023-05-12] MEDS ORDERED: DOCUSATE SODIUM 100 MG CAPSULE PO PRN (12:15)
[2023-05-12] MEDS: HALOPERIDOL 5 MG TABLET PO PRN ×2 (15:57→15:58)
[2023-05-12 18:18] VITALS: BP 122/69; PULSE 79; RESP 18; TEMP 97.5; O2SAT 99
[2023-05-12 21:11] VITALS: BP 139/76; PULSE 80; RESP 18; TEMP 97.3; O2SAT 100
[2023-05-12] MEDS: ZOLPIDEM TARTRATE 10 MG TABLET PO PRN (21:40)
[2023-05-12] MEDS: QUEtiapine FUMARATE 300 MG TABLET PO SCH (21:40)
[2023-05-13 10:55] VITALS: BP 118/79; PULSE 79; RESP 18; TEMP 97.1; O2SAT 100
[2023-05-13] MEDS: LORazepam 2 MG TABLET PO PRN (12:44)
[2023-05-13] MEDS: HALOPERIDOL 5 MG TABLET PO PRN (15:16)
[2023-05-13] MEDS: QUEtiapine FUMARATE 300 MG TABLET PO SCH (21:04)
[2023-05-13] MEDS: ZOLPIDEM TARTRATE 10 MG TABLET PO PRN (21:04)
[2023-05-13 21:26] VITALS: TEMP 98.3
[2023-05-14 07:42] LABS: COVID AG,FIA SOURCE NASAL SWAB
[2023-05-14 08:09] VITALS: BP 98/65; PULSE 61; RESP 18; TEMP 98; O2SAT 95
[2023-05-14 08:29] LABS: SARS-COV2 (COVID) ANTIGEN,FIA Positive (Negative)
[2023-05-14] MEDS: LORazepam 2 MG TABLET PO PRN ×2 (11:11→18:02)
[2023-05-14] MEDS: HALOPERIDOL 5 MG TABLET PO PRN ×2 (11:21→18:02)
[2023-05-14 20:36] VITALS: TEMP 98.6
[2023-05-14] MEDS: QUEtiapine FUMARATE 300 MG TABLET PO SCH (21:04)
[2023-05-14] MEDS: ZOLPIDEM TARTRATE 10 MG TABLET PO PRN (21:05)
[2023-05-15 09:03] VITALS: BP 117/78; PULSE 70; RESP 18; TEMP 98; O2SAT 100
[2023-05-15] MEDS: HALOPERIDOL 5 MG TABLET PO PRN ×2 (12:50→18:30)
[2023-05-15] MEDS: LORazepam 2 MG TABLET PO PRN ×2 (12:51→18:30)
[2023-05-15] MEDS: QUEtiapine FUMARATE 300 MG TABLET PO SCH (21:16)
[2023-05-15] MEDS: ZOLPIDEM TARTRATE 10 MG TABLET PO PRN (21:16)
[2023-05-15 21:37] VITALS: BP 124/75; PULSE 70; RESP 18; TEMP 98.2; O2SAT 96
[2023-05-16 08:07] VITALS: BP 121/73; PULSE 66; RESP 18; TEMP 98.1; O2SAT 97
[2023-05-16 09:42] LABS: COVID AG,FIA SOURCE NASAL SWAB
[2023-05-16 10:10] LABS: SARS-COV2 (COVID) ANTIGEN,FIA Negative (Negative)
[2023-05-16] MEDS: LORazepam 2 MG TABLET PO PRN ×3 (10:53→19:45)
[2023-05-16] MEDS: HALOPERIDOL 5 MG TABLET PO PRN ×2 (15:35→19:45)
[2023-05-16] MEDS: ZOLPIDEM TARTRATE 10 MG TABLET PO PRN (20:44)
[2023-05-16] MEDS: QUEtiapine FUMARATE 300 MG TABLET PO SCH (20:44)
[2023-05-16 20:48] VITALS: BP 136/92; PULSE 80; RESP 20; TEMP 98.1; O2SAT 96
[2023-05-17] MEDS: LORazepam 2 MG TABLET PO PRN ×3 (09:17→19:45)
[2023-05-17] MEDS: HALOPERIDOL 5 MG TABLET PO PRN ×3 (09:17→19:45)
[2023-05-17 09:30] VITALS: BP 120/67; PULSE 80; RESP 19; TEMP 96.7; O2SAT 97
[2023-05-17] MEDS: ZOLPIDEM TARTRATE 10 MG TABLET PO PRN (20:38)
[2023-05-17] MEDS: QUEtiapine FUMARATE 300 MG TABLET PO SCH (20:38)
[2023-05-17 20:41] VITALS: BP 120/84; PULSE 86; RESP 18; TEMP 97.9; O2SAT 97
[2023-05-18 09:08] VITALS: BP 100/56; PULSE 93; RESP 18; TEMP 96.9; O2SAT 97
[2023-05-18] MEDS: LORazepam 2 MG TABLET PO PRN ×3 (11:12→20:13)
[2023-05-18] MEDS: HALOPERIDOL 5 MG TABLET PO PRN ×3 (11:12→20:13)
[2023-05-18] MEDS: QUEtiapine FUMARATE 300 MG TABLET PO SCH (20:41)
[2023-05-18] MEDS: ZOLPIDEM TARTRATE 10 MG TABLET PO PRN ×2 (20:41→21:15)
[2023-05-18 20:51] VITALS: BP 125/64; PULSE 96; RESP 18; TEMP 97.8; O2SAT 97
[2023-05-19 09:15] VITALS: BP 121/67; PULSE 84; RESP 17; TEMP 98.2; O2SAT 99
[2023-05-19] MEDS: LORazepam 2 MG TABLET PO PRN (09:15)
[2023-05-19 09:17] VITALS: BP 121/67; PULSE 84; RESP 18; TEMP 98.2; O2SAT 99
[2023-05-19] MEDS: HALOPERIDOL 5 MG TABLET PO PRN (09:22)
== END 2023-05-19 15:46 | disposition home or self-care (01) | DRG 750 ==
LOC: EMS 06:56 → 3EI 13:13 → 3EX 05-16 18:16
PROVIDERS: ADMIT Psychiatry & Neurology Psychiatry; ATTEND Psychiatry & Neurology Psychiatry
DX: F25.1 Schizoaffective disorder, depressive type (principal); U07.1 COVID-19; R45.851 Suicidal ideations; F15.10 Other stimulant abuse, uncomplicated; F17.210 Nicotine dependence, cigarettes, uncomplicated; K21.9 Gastro-esophageal reflux disease without esophagitis; F41.9 Anxiety disorder, unspecified; G47.00 Insomnia, unspecified; F12.10 Cannabis abuse, uncomplicated
CPT/HCPCS: 80053; 85025; 87081; 99285; G0378; G0480

== ENCOUNTER 2023-05-22 19:22 | Inpatient (IN) | payer MEDICAID ==
[~2023-05-22] VITALS: Ht 175.3 cm; Wt 97.5 kg
[2023-05-22] MEDS ORDERED: ZOLPIDEM TARTRATE 10 MG TABLET PO PRN (22:45)
[2023-05-23 17:31] VITALS: BP 132/85; PULSE 87; RESP 18; TEMP 97.9; O2SAT 97
[2023-05-23] MEDS ORDERED: PNEUMOCOCCAL VACCINE POLYVALENT 0.5 ML SYRINGE [PPSV23] IM. ONE (19:30)
[2023-05-23] MEDS ORDERED: INFLUENZA VIRUS VACCINE QVS 2023-24 (6MO+)/PF 60 MCG/0.5 ML SYRINGE IM. ONE (19:30)
[2023-05-23] MEDS: HALOPERIDOL 5 MG TABLET PO PRN (20:05)
[2023-05-23] MEDS: LORazepam 2 MG TABLET PO PRN (20:05)
[2023-05-23] MEDS ORDERED: QUEtiapine FUMARATE 300 MG TABLET PO SCH (21:00)
[2023-05-23] MEDS: QUEtiapine FUMARATE 300 MG TABLET PO SCH (21:32)
[2023-05-24] MEDS ORDERED: DOCUSATE SODIUM 100 MG CAPSULE PO PRN (07:15)
[2023-05-24] MEDS ORDERED: MAG HYDROX/ALUMINUM HYD/SIMETH ES 30 ML SUSPENSION UDCUP PO PRN (07:15)
[2023-05-24] MEDS ORDERED: LOPERAMIDE HCL 2 MG CAPSULE PO PRN (07:15)
[2023-05-24] MEDS ORDERED: BACITRACIN 28 GM OINTMENT TP PRN (07:15)
[2023-05-24] MEDS ORDERED: MAGNESIUM HYDROXIDE SUSPENSION 30 ML UDCUP PO PRN (07:15)
[2023-05-24] MEDS ORDERED: ALBUTEROL SULFATE HFA 90 MCG/PUFF 8 GM INHALER IH PRN (07:15)
[2023-05-24] MEDS ORDERED: BENZOCAINE/MENTHOL LOZENGE PO PRN (07:15)
[2023-05-24] MEDS ORDERED: ACETAMINOPHEN 325 MG TABLET PO PRN (07:15)
[2023-05-24] MEDS ORDERED: ONDANSETRON HCL 4 MG TABLET PO PRN (07:15)
[2023-05-24] MEDS ORDERED: CloNIDine HCL 0.1 MG TABLET PO PRN (07:15)
[2023-05-24] MEDS ORDERED: OMEPRAZOLE 20 MG CAPSULE PO PRN (07:15)
[2023-05-24] MEDS ORDERED: PETROLATUM,WHITE 28 GM JELLY TP PRN (07:15)
[2023-05-24] MEDS: LORazepam 2 MG TABLET PO PRN ×2 (10:34→18:19)
[2023-05-24 17:35] VITALS: BP 130/80; PULSE 80; RESP 17; TEMP 98.1; O2SAT 98
[2023-05-24 20:07] VITALS: BP 127/72; PULSE 82; RESP 17; TEMP 98.6; O2SAT 97
[2023-05-24] MEDS: QUEtiapine FUMARATE 300 MG TABLET PO SCH (20:12)
[2023-05-24] MEDS ORDERED: QUEtiapine FUMARATE 300 MG TABLET PO SCH ×2 (21:00)
[2023-05-25 08:22] VITALS: BP 138/97; PULSE 84; RESP 18; TEMP 97.5; O2SAT 97
[2023-05-25] MEDS: LORazepam 2 MG TABLET PO PRN ×3 (08:51→21:00)
[2023-05-25] MEDS: QUEtiapine FUMARATE 300 MG TABLET PO SCH (20:08)
[2023-05-25] MEDS: HALOPERIDOL 5 MG TABLET PO PRN (21:00)
[2023-05-25 23:01] VITALS: BP 143/84; PULSE 79; RESP 17; TEMP 97.1; O2SAT 98
[2023-05-26 08:34] VITALS: BP 140/82; PULSE 80; RESP 17; TEMP 97.2; O2SAT 98
[2023-05-26] MEDS: HALOPERIDOL 5 MG TABLET PO PRN ×2 (08:34→14:32)
[2023-05-26] MEDS: LORazepam 2 MG TABLET PO PRN ×2 (08:34→14:32)
[2023-05-26] MEDS: QUEtiapine FUMARATE 300 MG TABLET PO SCH (20:28)
[2023-05-26 21:41] VITALS: BP 138/94; PULSE 83; RESP 18; TEMP 97.6; O2SAT 97
[2023-05-27] MEDS: IBUPROFEN 600 MG TABLET PO PRN (06:39)
[2023-05-27 07:19] VITALS: BP 105/59; PULSE 73; RESP 18; TEMP 97.8; O2SAT 97
[2023-05-27 08:53] VITALS: BP 134/74; PULSE 97; RESP 18; TEMP 97.8; O2SAT 99
[2023-05-27] MEDS: LORazepam 2 MG TABLET PO PRN (10:04)
[2023-05-27] MEDS: HALOPERIDOL 5 MG TABLET PO PRN ×2 (10:44→16:12)
[2023-05-27] MEDS: QUEtiapine FUMARATE 300 MG TABLET PO SCH (20:29)
[2023-05-27 21:15] VITALS: BP 145/92; PULSE 82; RESP 18; TEMP 97.9; O2SAT 97
[2023-05-28 09:20] VITALS: BP 139/108; PULSE 98; RESP 17; TEMP 98.1; O2SAT 97
[2023-05-28] MEDS: IBUPROFEN 600 MG TABLET PO PRN (09:24)
[2023-05-28 10:24] VITALS: RESP 17; O2SAT 97
[2023-05-28 20:09] VITALS: BP 142/95; PULSE 76; RESP 16; TEMP 97.5; O2SAT 97
[2023-05-28] MEDS: QUEtiapine FUMARATE 300 MG TABLET PO SCH (20:44)
[2023-05-29 08:55] VITALS: BP 146/93; PULSE 97; RESP 17; TEMP 97.9; O2SAT 96
== END 2023-05-29 18:00 | disposition home or self-care (01) | DRG 750 ==
LOC: B2S 05-23 15:30
PROVIDERS: ADMIT Psychiatry & Neurology Psychiatry; ATTEND Psychiatry & Neurology Psychiatry
DX: F25.0 Schizoaffective disorder, bipolar type (principal); R45.851 Suicidal ideations; F12.10 Cannabis abuse, uncomplicated; F15.10 Other stimulant abuse, uncomplicated; F41.9 Anxiety disorder, unspecified; G47.00 Insomnia, unspecified; K21.9 Gastro-esophageal reflux disease without esophagitis; K59.00 Constipation, unspecified; Z71.6 Tobacco abuse counseling; Z71.51 Drug abuse counseling and surveillance of drug abuser; Z28.21 Immunization not carried out because of patient refusal
CPT/HCPCS: 81003; 87081

== ENCOUNTER 2023-05-23 00:10 | Emergency (ER) | payer MEDICAID, OTHER ==
[~2023-05-23] VITALS: Ht 175.3 cm; Wt 97.0 kg
[2023-05-23 00:57] LABS: BASOPHILS % (AUTO) 0.7 % (0.0-2.0); EOSINOPHILS % (AUTO) 0.7 % (1.0-6.0); HEMATOCRIT 42.4 % (41-53); HEMOGLOBIN 14.6 g/dL (13.5-17.5); LYMPHOCYTES # (AUTO) 2.8 K/uL (1.0-4.8); MEAN CORPUSCULAR HEMOGLOBIN 30.2 pg (26.0-34.0); MEAN CORPUSCULAR HGB CONC 34.5 G/dL (31.0-37.0); MEAN CORPUSCULAR VOLUME 88 fL (80-100); MONOCYTES # (AUTO) 1.2 K/uL (0.1-1.0); MONOCYTES % (AUTO) 9.9 % (2.0-9.0); NEUTROPHILS # (AUTO) 8.4 K/uL (1.8-7.7); NEUTROPHILS % (AUTO) 66.7 % (40.0-70.0); PLATELET COUNT (AUTO) 318 K/uL (150-450); RED BLOOD CELL COUNT(AUTO) 4.84 MIL/uL (4.50-5.90); RED CELL DISTRIBUTION WIDTH 14.5 % (11.5-14.5); WHITE BLOOD COUNT (AUTO) 12.6 K/uL (4.5-11.0)
[2023-05-23 00:59] VITALS: TEMP 98.9
[2023-05-23 01:06] LABS: ANION GAP 13 mmol/L (8-16); CALCIUM, TOTAL 8.8 mg/dL (8.8-10.5); CARBON DIOXIDE 26 mmol/L (22-29); CHLORIDE 104 mmol/L (98-107); CREATININE 0.91 mg/dL (0.60-1.30); GLOMERULAR FILTR. RATE CALC > 60 mL/min (>60); GLUCOSE,RANDOM 116 mg/dL (70-110); POTASSIUM 3.3 mmol/L (3.5-5.1); SODIUM SERUM 143 mmol/L (136-145); UREA NITROGEN, BLOOD 13 mg/dL (7-18)
[2023-05-23 01:12] LABS: ALANINE AMINOTRANSFERASE 33 U/L (12-78); ALBUMIN 4.1 g/dL (3.4-5.0); ALKALINE PHOSPHATASE 80 U/L (46-116); ASPARTATE AMINOTRANSFERASE 35 U/L (15-37); BILIRUBIN,TOTAL 1.3 mg/dL (0.1-1.0); TOTAL PROTEIN, SERUM 8.1 g/dL (6.4-8.2)
[2023-05-23 01:17] LABS: ALCOHOL, BLOOD (SERUM) < 3 mg/dL (0-10)
[2023-05-23 01:21] LABS: COVID AG,FIA SOURCE NASAL SWAB
[2023-05-23 02:01] LABS: SARS-COV2 (COVID) ANTIGEN,FIA Negative (Negative)
[2023-05-23] MEDS ORDERED: MELATONIN 3 MG TABLET PO ONE (02:15)
[2023-05-23] MEDS ORDERED: QUEtiapine FUMARATE 100 MG TABLET PO ONE (03:00)
[2023-05-23 03:59] LABS: ALCOHOL, URINE DRUG SCREEN NEGATIVE (NEGATIVE); AMPHET/METH SCREEN,URINE POSITIVE (NEGATIVE); BARBITURATE SCREEN, URINE NEGATIVE (NEGATIVE); BENZODIAZEPINES SCREEN,URINE NEGATIVE (NEGATIVE); CANNABINOID SCREEN,URINE POSITIVE (NEGATIVE); COCAINE SCREEN,URINE NEGATIVE (NEGATIVE); METHADONE SCREEN, URINE NEGATIVE (NEGATIVE); OPIATE SCREEN,URINE NEGATIVE (NEGATIVE); PHENCYCLIDINE SCREEN,URINE NEGATIVE (NEGATIVE)
[2023-05-23 13:53] VITALS: BP 119/67; PULSE 80; RESP 16
[2023-05-23] MEDS ORDERED: LORazepam 2 MG TABLET PO ONE (15:45)
== END 2023-05-23 16:30 ==
LOC: EMS 00:11
DX: F25.9 Schizoaffective disorder, unspecified (principal); R45.851 Suicidal ideations; F41.9 Anxiety disorder, unspecified; F31.9 Bipolar disorder, unspecified; I10 Essential (primary) hypertension; F20.9 Schizophrenia, unspecified; F17.210 Nicotine dependence, cigarettes, uncomplicated; F10.90 Alcohol use, unspecified, uncomplicated; F15.90 Other stimulant use, unspecified, uncomplicated; Z98.890 Other specified postprocedural states; Z20.822 Contact with and (suspected) exposure to COVID-19
CPT/HCPCS: 80053; 85025; 36415; 99285; 80307 ×2; 87426; G0480

== ENCOUNTER 2023-08-30 07:32 | Inpatient (IN) | payer MEDICAID ==
[2023-08-30] VITALS (11 sets, daily range): BP systolic 110–140; BP diastolic 70–77; PULSE 64–84; RESP 17–21; TEMP 97.5–98; O2SAT 97–98
[~2023-08-30] VITALS: Ht 180.3 cm; Wt 98.0 kg
[~2023-08-30 07:32] MED LIST changes: +DIVA500T69 PO; +FLUO20CA36 PO; +GABA-1201 PO; +MELA5TAB40 PO; +NALT50TA33 PO; +NYST30OI6 TP; +OMEG-135 PO; +QUET200T30 PO; -QUET300T2 PO
[2023-08-30] MEDS ORDERED: DIAZEPAM 10 MG TABLET PO PRN (08:30)
[2023-08-30] MEDS ORDERED: ZOLPIDEM TARTRATE 10 MG TABLET PO PRN (08:30)
[2023-08-30] MEDS ORDERED: LOPERAMIDE HCL 2 MG CAPSULE PO PRN ×2 (08:30)
[2023-08-30] MEDS: CYANOCOBALAMIN 1,000 MCG/ML VIAL IM ONE (08:30)
[2023-08-30] MEDS ORDERED: PROMETHAZINE HCL 25 MG TABLET PO PRN (08:30)
[2023-08-30] MEDS ORDERED: GuaiFENesin/D-METHORPHAN [SUGAR-FREE] 200-20MG/10 ML SYRUP UDCUP PO PRN (08:30)
[2023-08-30] MEDS ORDERED: MAGNESIUM HYDROXIDE SUSPENSION 30 ML UDCUP PO PRN (08:30)
[2023-08-30] MEDS ORDERED: HydrOXYzine PAMOATE 50 MG CAPSULE PO PRN (08:30)
[2023-08-30] MEDS ORDERED: MAG HYDROX/ALUMINUM HYD/SIMETH ES 30 ML SUSPENSION UDCUP PO PRN (08:30)
[2023-08-30 08:41] LABS: GLUCOMETER DEV NAME(LOC) POC.BV; POC SARS-COV2 AG, FIA NEGATIVE (NEGATIVE)
[2023-08-30] MEDS: OMEGA-3/DHA/EPA/FISH OIL 1,000 MG CAPSULE PO SCH (10:30)
[2023-08-30] MEDS: NALTREXONE HCL 50 MG TABLET PO SCH (10:30)
[2023-08-30] MEDS: MULTIVITAMINS WITH MINERALS, THERAPEUTIC TABLET PO SCH (10:30)
[2023-08-30] MEDS: QUEtiapine FUMARATE 25 MG TABLET PO SCH (10:31)
[2023-08-30] MEDS: THIAMINE 100 MG TABLET PO SCH (10:31)
[2023-08-30] MEDS: FOLIC ACID 1 MG TABLET PO SCH (10:31)
[2023-08-30] MEDS: GABAPENTIN 300 MG CAPSULE PO SCH (10:31)
[2023-08-30] MEDS: FLUoxetine HCL 10 MG CAPSULE PO SCH (12:35)
[2023-08-30] MEDS: INFLUENZA VIRUS VACCINE QVS 2023-24 (6MO+)/PF 60 MCG/0.5 ML SYRINGE IM. ONE (16:45)
[2023-08-30] MEDS: MELATONIN 5 MG TABLET PO SCH (20:31)
[2023-08-30] MEDS: QUEtiapine FUMARATE 100 MG TABLET PO SCH (20:31)
[2023-08-30] MEDS: DIVALPROEX SODIUM 500 MG ER TABLET PO SCH (20:32)
[2023-08-31] VITALS (10 sets, daily range): BP systolic 120–135; BP diastolic 67–79; PULSE 78–91; RESP 16–18; TEMP 97.5–98.4; O2SAT 97–99
[2023-08-31] MEDS ORDERED: DIAZEPAM 10 MG TABLET PO PRN (07:00)
[2023-08-31] MEDS: DIAZEPAM 10 MG TABLET PO SCH (08:34)
[2023-08-31] MEDS: ACETAMINOPHEN 325 MG TABLET PO PRN (10:54)
[2023-09-01 12:16] VITALS: BP 133/57; PULSE 75; RESP 18; TEMP 98.3; O2SAT 98
[2023-09-01 16:07] VITALS: BP 115/71
[2023-09-01 20:21] VITALS: BP 105/62; PULSE 80; RESP 18; TEMP 97.5; O2SAT 96
[2023-09-01 20:59] VITALS: RESP 18
[2023-09-01 21:55] VITALS: RESP 18
[2023-09-02] MEDS ORDERED: DIAZEPAM 5 MG TABLET PO PRN (07:00)
[2023-09-02 08:50] VITALS: RESP 16
[2023-09-02] MEDS: DIAZEPAM 5 MG TABLET PO SCH (09:11)
[2023-09-02] MEDS: PALIPERIDONE PALMITATE 234 MG/1.5 ML SYRINGE IM ONE (12:38)
[2023-09-02 13:03] VITALS: BP 132/80; PULSE 88; RESP 18
[2023-09-02 20:40] VITALS: BP 106/61; PULSE 76; RESP 16; TEMP 97.8; O2SAT 97
[2023-09-03] MEDS ORDERED: DIAZEPAM 5 MG TABLET PO PRN (07:00)
[2023-09-03 08:23] VITALS: BP 102/62; PULSE 68; RESP 18; TEMP 97.9; O2SAT 96
[2023-09-03] MEDS ORDERED: PALIPERIDONE PALMITATE 156 MG/ML SYRINGE IM ONE (09:00)
[2023-09-03] MEDS: GABAPENTIN 400 MG CAPSULE PO SCH (16:10)
[2023-09-03 20:15] VITALS: BP 128/74; PULSE 88; RESP 16; TEMP 97.7; O2SAT 96
[2023-09-03] MEDS: QUEtiapine FUMARATE 200 MG TABLET PO SCH (20:19)
[2023-09-04] MEDS: FLUoxetine HCL 20 MG CAPSULE PO SCH (08:08)
[2023-09-04 09:00] VITALS: BP 128/80; PULSE 97; RESP 19; TEMP 98; O2SAT 98
[2023-09-04] MEDS ORDERED: QUEtiapine FUMARATE 100 MG TABLET PO PRN (16:00)
[2023-09-04] MEDS ORDERED: GABAPENTIN 400 MG CAPSULE PO PRN (16:00)
[2023-09-04] MEDS: QUEtiapine FUMARATE 25 MG TABLET PO SCH (16:34)
[2023-09-04] MEDS: QUEtiapine FUMARATE 300 MG TABLET PO SCH (20:08)
[2023-09-04 21:20] VITALS: BP 101/62; PULSE 78; RESP 17; TEMP 97.5; O2SAT 94
[2023-09-05 08:40] VITALS: BP 108/65; PULSE 77; RESP 17; TEMP 97.8; O2SAT 98
[2023-09-05 11:32] VITALS: RESP 18; O2SAT 98
[2023-09-05 12:32] VITALS: RESP 17; O2SAT 98
[2023-09-05 20:43] VITALS: BP 119/72; PULSE 72; RESP 18; TEMP 98.2; O2SAT 98
[2023-09-05] MEDS: QUEtiapine FUMARATE 200 MG TABLET PO SCH (20:50)
[2023-09-06] MEDS: PALIPERIDONE PALMITATE 156 MG/ML SYRINGE IM ONE (14:46)
[2023-09-06 15:43] VITALS: BP 116/70; PULSE 65; RESP 18; TEMP 97.4; O2SAT 98
[2023-09-06] MEDS: QUEtiapine FUMARATE 100 MG TABLET PO PRN (16:24)
[2023-09-06 20:13] VITALS: BP 149/72; PULSE 88; RESP 20; TEMP 97.6; O2SAT 97
[2023-09-06] MEDS: QUEtiapine FUMARATE 200 MG TABLET PO SCH (21:10)
[2023-09-07] MEDS: QUEtiapine FUMARATE 25 MG TABLET PO SCH (08:21)
[2023-09-07 15:40] VITALS: BP 128/70; PULSE 64; RESP 18; TEMP 98; O2SAT 96
[2023-09-07 16:40] VITALS: RESP 17; O2SAT 96
[2023-09-07 21:02] VITALS: BP 121/72; PULSE 73; RESP 18; TEMP 98.2; O2SAT 98
[2023-09-08] MEDS: FLUoxetine HCL 20 MG CAPSULE PO SCH (08:42)
[2023-09-08 09:17] VITALS: BP 119/70; PULSE 87; RESP 18; TEMP 97.7; O2SAT 98
[2023-09-08 11:59] VITALS: RESP 17
[2023-09-08 12:59] VITALS: RESP 18
[2023-09-08 21:45] VITALS: BP 125/74; PULSE 75; RESP 16; TEMP 97.6; O2SAT 94
[2023-09-09 09:00] VITALS: BP 109/54; PULSE 68; RESP 16; TEMP 98.3; O2SAT 98
[2023-09-09 13:36] VITALS: RESP 18; O2SAT 98
[2023-09-09 14:36] VITALS: RESP 17; O2SAT 98
[2023-09-09 15:55] VITALS: BP 109/54; PULSE 68; RESP 17; TEMP 98.3; O2SAT 95
[2023-09-09 17:52] VITALS: BP 135/79; PULSE 81; RESP 18; TEMP 97.9; O2SAT 95
[2023-09-09 22:37] VITALS: BP 106/70; PULSE 74; RESP 17; TEMP 98.1; O2SAT 98
[2023-09-10] MEDS ORDERED: QUET25TA36 PO (08:22)
[2023-09-10 09:51] VITALS: BP 18/70; PULSE 78; RESP 17; TEMP 98; O2SAT 98
== END 2023-09-10 10:36 | disposition home or self-care (01) | DRG 750 ==
LOC: B2S 08:45
PROVIDERS: ADMIT Psychiatry & Neurology Psychiatry; ATTEND Psychiatry & Neurology Psychiatry
PROC: GZHZZZZ Group Psychotherapy (ICD-10-PCS; principal; 2023-08-30)
PROC: GZ58ZZZ Individual Psychotherapy, Cognitive-Behavioral (ICD-10-PCS; 2023-08-30)
DX: F25.9 Schizoaffective disorder, unspecified (principal); R45.851 Suicidal ideations; F17.200 Nicotine dependence, unspecified, uncomplicated; Z20.822 Contact with and (suspected) exposure to COVID-19; J44.9 Chronic obstructive pulmonary disease, unspecified; F12.20 Cannabis dependence, uncomplicated; T43.96XA Underdosing of unspecified psychotropic drug, initial encounter; I10 Essential (primary) hypertension; F15.20 Other stimulant dependence, uncomplicated; F10.20 Alcohol dependence, uncomplicated; Y90.9 Presence of alcohol in blood, level not specified; Z65.3 Problems related to other legal circumstances; Z55.9 Problems related to education and literacy, unspecified; Z63.9 Problem related to primary support group, unspecified; Z59.00 Homelessness unspecified; Y92.89 Other specified places as the place of occurrence of the external cause
CPT/HCPCS: J3420; Q9967

== ENCOUNTER 2023-09-18 20:05 | Inpatient (IN) | payer MEDICAID ==
[~2023-09-18] VITALS: Ht 175.3 cm; Wt 103.1 kg
[~2023-09-18 20:05] MED LIST changes: -NALT50TA33 PO; -NYST30OI6 TP; +QUET25TA36 PO
[2023-09-18] MEDS: OLANZapine 5 MG RAPDIS TABLET PO SCH (21:00)
[2023-09-18] MEDS ORDERED: MAGNESIUM HYDROXIDE SUSPENSION 30 ML UDCUP PO PRN (21:00)
[2023-09-18] MEDS: PALIPERIDONE PALMITATE 234 MG/1.5 ML SYRINGE IM ONE (21:00)
[2023-09-18] MEDS: GABAPENTIN 400 MG CAPSULE PO SCH (21:00)
[2023-09-18] MEDS ORDERED: LOPERAMIDE HCL 2 MG CAPSULE PO PRN (21:00)
[2023-09-18] MEDS ORDERED: GuaiFENesin/D-METHORPHAN [SUGAR-FREE] 200-20MG/10 ML SYRUP UDCUP PO PRN (21:00)
[2023-09-18] MEDS ORDERED: PROMETHAZINE HCL 25 MG TABLET PO PRN (21:00)
[2023-09-18] MEDS ORDERED: MAG HYDROX/ALUMINUM HYD/SIMETH ES 30 ML SUSPENSION UDCUP PO PRN (21:00)
[2023-09-18] MEDS: MELATONIN 5 MG TABLET PO SCH (21:00)
[2023-09-18 21:20] LABS: GLUCOMETER DEV NAME(LOC) POC.BV; POC SARS-COV2 AG, FIA NEGATIVE (NEGATIVE)
[2023-09-18 23:16] VITALS: BP 128/81; PULSE 91; RESP 19; TEMP 98.2; O2SAT 97
[2023-09-18] MEDS: DIVALPROEX SODIUM 500 MG ER TABLET PO SCH (23:56)
[2023-09-19] MEDS: ZOLPIDEM TARTRATE 10 MG TABLET PO PRN (02:27)
[2023-09-19] MEDS: ACETAMINOPHEN 325 MG TABLET PO PRN (02:27)
[2023-09-19 08:01] LABS: PH,URINE DRUG SCREEN 5.5 (5.0-8.0)
[2023-09-19 08:08] LABS: ALCOHOL, URINE DRUG SCREEN NEGATIVE (NEGATIVE); AMPHET/METH SCREEN,URINE POSITIVE (NEGATIVE); BARBITURATE SCREEN, URINE NEGATIVE (NEGATIVE); BENZODIAZEPINES SCREEN,URINE POSITIVE (NEGATIVE); CANNABINOID SCREEN,URINE NEGATIVE (NEGATIVE); COCAINE SCREEN,URINE NEGATIVE (NEGATIVE); METHADONE SCREEN, URINE NEGATIVE (NEGATIVE); OPIATE SCREEN,URINE NEGATIVE (NEGATIVE); PHENCYCLIDINE SCREEN,URINE NEGATIVE (NEGATIVE)
[2023-09-19] MEDS: THIAMINE 100 MG TABLET PO SCH (09:00)
[2023-09-19] MEDS: FLUoxetine HCL 20 MG CAPSULE PO SCH (09:00)
[2023-09-19] MEDS: MULTIVITAMINS WITH MINERALS, THERAPEUTIC TABLET PO SCH (09:00)
[2023-09-19] MEDS: FOLIC ACID 1 MG TABLET PO SCH (09:00)
[2023-09-19] MEDS: OMEGA-3/DHA/EPA/FISH OIL 1,000 MG CAPSULE PO SCH (09:00)
[2023-09-19] MEDS: NALTREXONE HCL 50 MG TABLET PO SCH (09:00)
[2023-09-19 09:20] VITALS: BP 103/61; PULSE 78; RESP 17; TEMP 97.8; O2SAT 93
[2023-09-19 20:11] VITALS: BP 114/55; PULSE 77; TEMP 98.4; O2SAT 96
[2023-09-20 08:18] VITALS: BP 111/63; PULSE 96; RESP 18; TEMP 97.8; O2SAT 97
[2023-09-20 20:13] VITALS: BP 142/86; PULSE 94; RESP 16; TEMP 99.1; O2SAT 95
[2023-09-21 08:14] VITALS: BP 115/73; PULSE 71; RESP 17; TEMP 98; O2SAT 97
[2023-09-21] MEDS: PALIPERIDONE PALMITATE 234 MG/1.5 ML SYRINGE IM ONE (20:38)
[2023-09-22 08:10] VITALS: BP 121/67; PULSE 79; RESP 17; TEMP 98; O2SAT 96
[2023-09-22] MEDS ORDERED: PALIPERIDONE PALMITATE 156 MG/ML SYRINGE IM ONE (09:00)
[2023-09-22] MEDS: HydrOXYzine PAMOATE 50 MG CAPSULE PO PRN (13:50)
[2023-09-22 20:20] VITALS: BP 125/84; PULSE 80; RESP 16; TEMP 98.4; O2SAT 97
[2023-09-23 08:45] VITALS: BP 128/68; PULSE 72; RESP 18; TEMP 97.7; O2SAT 98
[2023-09-23 20:19] VITALS: BP 135/87; PULSE 77; RESP 18; TEMP 98; O2SAT 96
[2023-09-24 08:45] VITALS: RESP 18
[2023-09-24 20:19] VITALS: BP 125/89; PULSE 80; TEMP 98.4; O2SAT 98
[2023-09-25] MEDS: FLUoxetine HCL 20 MG CAPSULE PO SCH (08:22)
[2023-09-25] MEDS: GABAPENTIN 300 MG CAPSULE PO SCH (08:22)
[2023-09-25 08:24] VITALS: BP 144/82; PULSE 90; RESP 18; TEMP 98; O2SAT 96
[2023-09-25 20:16] VITALS: BP 127/94; PULSE 93; TEMP 97.6; O2SAT 96
[2023-09-25] MEDS: OLANZapine 10 MG RAPDIS TABLET PO SCH (20:22)
[2023-09-26 08:34] VITALS: RESP 18
[2023-09-26] MEDS: PALIPERIDONE PALMITATE 156 MG/ML SYRINGE IM ONE (16:50)
[2023-09-26 20:08] VITALS: BP 125/74; PULSE 82; TEMP 98.4; O2SAT 100
[2023-09-27 08:29] VITALS: BP 102/60; PULSE 74; RESP 17; TEMP 97.6; O2SAT 96
[2023-09-27] MEDS: FLUoxetine HCL 20 MG CAPSULE PO SCH (08:44)
[2023-09-27 20:19] VITALS: BP 144/87; PULSE 87; TEMP 98.2; O2SAT 96
[2023-09-27] MEDS: GABAPENTIN 400 MG CAPSULE PO SCH (20:23)
[2023-09-28] MEDS: PNEUMOCOCCAL VACCINE POLYVALENT 0.5 ML SYRINGE [PPSV23] IM. ONE (06:00)
[2023-09-28] MEDS: FLUoxetine HCL 20 MG CAPSULE PO SCH (08:08)
[2023-09-28 08:18] VITALS: BP 118/72; PULSE 63; RESP 17; TEMP 97.7; O2SAT 98
[2023-09-28] MEDS: OLANZapine 5 MG RAPDIS TABLET PO PRN (18:07)
[2023-09-28 20:06] VITALS: BP 135/78; PULSE 89; RESP 19; TEMP 98.4; O2SAT 96
[2023-09-29 08:45] VITALS: BP 125/67; PULSE 64; RESP 18; TEMP 98; O2SAT 98
[2023-09-29 20:41] VITALS: BP 132/77; PULSE 95; RESP 18; TEMP 98.7; O2SAT 94
[2023-09-30 08:34] VITALS: BP 117/71; PULSE 68; RESP 16; TEMP 97.8; O2SAT 98
[2023-09-30 20:24] VITALS: BP 122/79; PULSE 70; TEMP 98.7; O2SAT 96
[2023-10-01 07:59] LABS: BASOPHILS % (AUTO) 1.3 % (0.0-2.0); EOSINOPHILS % (AUTO) 3.1 % (1.0-6.0); HEMATOCRIT 42.1 % (41-53); HEMOGLOBIN 14.1 g/dL (13.5-17.5); LYMPHOCYTES % (AUTO) 40.9 % (22.0-44.0); MEAN CORPUSCULAR HEMOGLOBIN 30.2 pg (26.0-34.0); MEAN CORPUSCULAR HGB CONC 33.6 G/dL (31.0-37.0); MEAN CORPUSCULAR VOLUME 90 fL (80-100); MONOCYTES # (AUTO) 0.7 K/uL (0.1-1.0); MONOCYTES % (AUTO) 10.2 % (2.0-9.0); NEUTROPHILS # (AUTO) 3.2 K/uL (1.8-7.7); NEUTROPHILS % (AUTO) 44.5 % (40.0-70.0); PLATELET COUNT (AUTO) 264 K/uL (150-450); RED BLOOD CELL COUNT(AUTO) 4.68 MIL/uL (4.50-5.90); RED CELL DISTRIBUTION WIDTH 14.4 % (11.5-14.5); WHITE BLOOD COUNT (AUTO) 7.3 K/uL (4.5-11.0)
[2023-10-01 08:07] LABS: HEMOGLOBIN A1C 5.4 % (3.8-5.6)
[2023-10-01 08:08] VITALS: RESP 18
[2023-10-01 08:18] LABS: CHOL/HDL RATIO 3.8 (4.2-7.3); FREE T4 (FREE THYROXINE) 0.75 ng/dL (0.76-1.46); THYROID STIMULATING HORMONE 1.31 uIU/mL (0.36-3.74)
[2023-10-01 20:35] VITALS: BP 128/82; PULSE 77; TEMP 98.6; O2SAT 98
[2023-10-02 20:22] VITALS: BP 134/92; PULSE 93; TEMP 97.5; O2SAT 95
[2023-10-03 08:35] VITALS: RESP 18
[2023-10-03 20:42] VITALS: BP 131/97; PULSE 94; TEMP 98.4; O2SAT 97
[2023-10-04 09:07] VITALS: RESP 18
[2023-10-04] MEDS ORDERED: NALT50TA33 PO (16:27)
[2023-10-04] MEDS ORDERED: OLAN10TA26 PO (16:27)
[2023-10-04 20:22] VITALS: BP 138/80; PULSE 83; RESP 17; TEMP 98.7; O2SAT 100
[2023-10-05 08:58] VITALS: RESP 18
== END 2023-10-05 10:18 | disposition home or self-care (01) | DRG 750 ==
LOC: B3A 20:44
PROVIDERS: ADMIT Psychiatry & Neurology Psychiatry; ATTEND Psychiatry & Neurology Psychiatry
PROC: GZHZZZZ Group Psychotherapy (ICD-10-PCS; principal; 2023-09-19)
PROC: GZ58ZZZ Individual Psychotherapy, Cognitive-Behavioral (ICD-10-PCS; 2023-09-19)
DX: F25.9 Schizoaffective disorder, unspecified (principal); R45.851 Suicidal ideations; E87.6 Hypokalemia; Z20.822 Contact with and (suspected) exposure to COVID-19; F14.90 Cocaine use, unspecified, uncomplicated; F15.90 Other stimulant use, unspecified, uncomplicated; F17.200 Nicotine dependence, unspecified, uncomplicated; F41.9 Anxiety disorder, unspecified; F60.0 Paranoid personality disorder; I10 Essential (primary) hypertension; J44.9 Chronic obstructive pulmonary disease, unspecified; Z79.899 Other long term (current) drug therapy; Z91.199 Patient's noncompliance with other medical treatment and regimen due to unspecified reason; Z59.00 Homelessness unspecified
CPT/HCPCS: 80061; 80164; 80307; 83036; 84439; 84443; 85025; 86592; Q9967; 36415-L1; 36415-TC; J2426; Z7610

== ENCOUNTER → 2024-02-28 | Emergency (ER) | payer MEDICAID, OTHER ==
[~2024-02-28] VITALS: Ht 175.3 cm; Wt 95.5 kg
[~2024-02-28] MED LIST changes: +FLUO-418 PO; -FLUO20CA36 PO; +NALT50TA33 PO; +OLAN10TA26 PO; -QUET200T30 PO; -QUET25TA36 PO; +QUET300T2 PO
[2024-02-28 23:32] LABS: ANION GAP 15 mmol/L (8-16); BASOPHILS % (AUTO) 0.7 % (0.0-2.0); CALCIUM, TOTAL 9.9 mg/dL (8.8-10.5); CARBON DIOXIDE 21 mmol/L (22-29); CHLORIDE 99 mmol/L (98-107); CREATININE 0.75 mg/dL (0.60-1.30); GLOMERULAR FILTR. RATE CALC > 60 mL/min (>60); GLUCOSE,RANDOM 96 mg/dL (70-110); HEMATOCRIT 49.1 % (41-53); HEMOGLOBIN 16.2 g/dL (13.5-17.5); LYMPHOCYTES # (AUTO) 3.1 K/uL (1.0-4.8); LYMPHOCYTES % (AUTO) 21.1 % (22.0-44.0); MEAN CORPUSCULAR HEMOGLOBIN 30.6 pg (26.0-34.0); MEAN CORPUSCULAR VOLUME 93 fL (80-100); MONOCYTES # (AUTO) 1.6 K/uL (0.1-1.0); MONOCYTES % (AUTO) 10.9 % (2.0-9.0); NEUTROPHILS # (AUTO) 9.8 K/uL (1.8-7.7); NEUTROPHILS % (AUTO) 66.3 % (40.0-70.0); PLATELET COUNT (AUTO) 343 K/uL (150-450); POTASSIUM 3.6 mmol/L (3.5-5.1); RED CELL DISTRIBUTION WIDTH 14.3 % (11.5-14.5); SODIUM SERUM 135 mmol/L (136-145); UREA NITROGEN, BLOOD 10 mg/dL (7-18); WHITE BLOOD COUNT (AUTO) 14.8 K/uL (4.5-11.0)
[2024-02-28 23:39] LABS: ALCOHOL, BLOOD (SERUM) < 3 mg/dL (0-10)
[2024-02-28 23:41] LABS: TROPONIN I-HIGH SENSITIVITY 7 ng/L (<76)
[2024-02-29] MEDS: LORazepam 1 MG TABLET PO ONE (00:32)
[2024-02-29 02:32] VITALS: BP 137/99; PULSE 99; RESP 18; TEMP 98.9; O2SAT 98
== END | disposition home or self-care (01) ==
LOC: EMS 21:39
DX: R53.1 Weakness (principal); I10 Essential (primary) hypertension; F31.9 Bipolar disorder, unspecified; F41.9 Anxiety disorder, unspecified; F20.9 Schizophrenia, unspecified; F12.90 Cannabis use, unspecified, uncomplicated; K21.9 Gastro-esophageal reflux disease without esophagitis; Z79.899 Other long term (current) drug therapy
CPT/HCPCS: 99284; 80048; 84484; 85025; 36415; 93005; G0480

== ENCOUNTER 2024-03-01 07:47 | Inpatient (IN) | payer MEDICAID ==
[~2024-03-01] VITALS: Ht 175.3 cm; Wt 102.1 kg
[~2024-03-01 07:47] MED LIST changes: -QUET300T2 PO
[2024-03-01] MEDS ORDERED: ZOLPIDEM TARTRATE 10 MG TABLET PO PRN (09:15)
[2024-03-01 09:26] LABS: GLUCOMETER DEV NAME(LOC) POC.BV; POC SARS-COV2 AG, FIA NEGATIVE (NEGATIVE)
[2024-03-01 10:00] VITALS: BP 148/94; PULSE 108; RESP 16; TEMP 97.8; O2SAT 96
[2024-03-01] MEDS: LORazepam 2 MG TABLET PO PRN (10:05)
[2024-03-01] MEDS: HALOPERIDOL 5 MG TABLET PO PRN (10:05)
[2024-03-01 11:01] VITALS: BP 148/84; PULSE 108; RESP 16; TEMP 97.8; O2SAT 96
[2024-03-01] MEDS: PNEUMOCOCCAL VACCINE POLYVALENT 0.5 ML SYRINGE [PPSV23] IM. ONE (11:30)
[2024-03-01] MEDS: INFLUENZA VIRUS VACCINE TVS (6MO+) 2024-25/PF 45 MCG/0.5 ML SYRINGE IM. ONE (11:30)
[2024-03-01] MEDS ORDERED: MAG HYDROX/ALUMINUM HYD/SIMETH ES 30 ML SUSPENSION UDCUP PO PRN (12:00)
[2024-03-01] MEDS ORDERED: DOCUSATE SODIUM 100 MG CAPSULE PO PRN (12:00)
[2024-03-01] MEDS ORDERED: LOPERAMIDE HCL 2 MG CAPSULE PO PRN (12:00)
[2024-03-01] MEDS ORDERED: CloNIDine HCL 0.1 MG TABLET PO PRN (12:00)
[2024-03-01] MEDS ORDERED: IBUPROFEN 400 MG TABLET PO PRN (12:00)
[2024-03-01] MEDS ORDERED: ACETAMINOPHEN 325 MG TABLET PO PRN (12:00)
[2024-03-01] MEDS ORDERED: NICOTINE 14 MG/24 HOUR PATCH TD PRN (12:00)
[2024-03-01] MEDS ORDERED: GuaiFENesin/D-METHORPHAN [SUGAR-FREE] 200-20MG/10 ML SYRUP UDCUP PO PRN (12:00)
[2024-03-01] MEDS ORDERED: MAGNESIUM HYDROXIDE SUSPENSION 30 ML UDCUP PO PRN (12:00)
[2024-03-01] MEDS ORDERED: ALBUTEROL SULFATE HFA 90 MCG/PUFF 8 GM INHALER IH PRN (12:00)
[2024-03-01] MEDS ORDERED: ONDANSETRON 4 MG TABLET PO PRN (12:00)
[2024-03-01] MEDS ORDERED: PETROLATUM,WHITE 28 GM JELLY TP PRN (12:00)
[2024-03-01] MEDS: OMEGA-3/DHA/EPA/FISH OIL 1,000 MG CAPSULE PO SCH (12:51)
[2024-03-01] MEDS: QUEtiapine FUMARATE 300 MG TABLET PO SCH (20:35)
[2024-03-01] MEDS: DIVALPROEX SODIUM 500 MG ER TABLET PO SCH (20:39)
[2024-03-01 20:43] VITALS: BP 126/80; PULSE 95; RESP 17; TEMP 97.5; O2SAT 96
[2024-03-02] MEDS ORDERED: LOPERAMIDE HCL 2 MG CAPSULE PO PRN (09:45)
[2024-03-02] MEDS ORDERED: NICOTINE 14 MG/24 HOUR PATCH TD PRN (09:45)
[2024-03-02] MEDS ORDERED: CloNIDine HCL 0.1 MG TABLET PO PRN (09:45)
[2024-03-02] MEDS ORDERED: ALBUTEROL SULFATE HFA 90 MCG/PUFF 8 GM INHALER IH PRN (09:45)
[2024-03-02] MEDS ORDERED: DOCUSATE SODIUM 100 MG CAPSULE PO PRN (09:45)
[2024-03-02] MEDS ORDERED: PETROLATUM,WHITE 28 GM JELLY TP PRN (09:45)
[2024-03-02] MEDS ORDERED: GuaiFENesin/D-METHORPHAN [SUGAR-FREE] 200-20MG/10 ML SYRUP UDCUP PO PRN (09:45)
[2024-03-02] MEDS ORDERED: MAGNESIUM HYDROXIDE SUSPENSION 30 ML UDCUP PO PRN (09:45)
[2024-03-02] MEDS ORDERED: MAG HYDROX/ALUMINUM HYD/SIMETH ES 30 ML SUSPENSION UDCUP PO PRN (09:45)
[2024-03-02] MEDS ORDERED: ONDANSETRON 4 MG TABLET PO PRN (09:45)
[2024-03-02 15:21] VITALS: RESP 17
[2024-03-02 20:15] VITALS: BP 140/86; PULSE 94; RESP 18; TEMP 97.9; O2SAT 100
[2024-03-03 09:11] VITALS: RESP 18
[2024-03-03 11:39] VITALS: RESP 18
[2024-03-03] MEDS: IBUPROFEN 400 MG TABLET PO PRN (11:39)
[2024-03-03 12:39] VITALS: RESP 18
[2024-03-03 20:24] VITALS: BP 147/80; PULSE 72; RESP 18; TEMP 95.5
[2024-03-04 08:49] VITALS: BP 115/68; PULSE 66; RESP 19; TEMP 97.7; O2SAT 100
[2024-03-04 20:17] VITALS: BP 135/82; PULSE 80; RESP 18; TEMP 99.2; O2SAT 99
[2024-03-05 09:03] VITALS: BP 142/75; PULSE 65; RESP 17; TEMP 97; O2SAT 96
[2024-03-05 20:15] VITALS: BP 128/71; PULSE 70; RESP 18; TEMP 97.6; O2SAT 95
[2024-03-06 08:23] VITALS: BP 106/70; PULSE 85; RESP 17; TEMP 97.4; O2SAT 97
[2024-03-06 08:52] LABS: EOSINOPHILS % (AUTO) 3.1 % (1.0-6.0); HEMATOCRIT 47.1 % (41-53); HEMOGLOBIN 15.5 g/dL (13.5-17.5); LYMPHOCYTES # (AUTO) 2.2 K/uL (1.0-4.8); LYMPHOCYTES % (AUTO) 28.8 % (22.0-44.0); MEAN CORPUSCULAR HEMOGLOBIN 30.9 pg (26.0-34.0); MEAN CORPUSCULAR VOLUME 94 fL (80-100); MONOCYTES # (AUTO) 0.7 K/uL (0.1-1.0); MONOCYTES % (AUTO) 8.8 % (2.0-9.0); NEUTROPHILS # (AUTO) 4.5 K/uL (1.8-7.7); NEUTROPHILS % (AUTO) 58.3 % (40.0-70.0); PLATELET COUNT (AUTO) 303 K/uL (150-450); RED BLOOD CELL COUNT(AUTO) 5.04 MIL/uL (4.50-5.90); RED CELL DISTRIBUTION WIDTH 14.4 % (11.5-14.5); WHITE BLOOD COUNT (AUTO) 7.7 K/uL (4.5-11.0)
[2024-03-06 08:53] LABS: APPEARANCE,URINE TURBID (CLEAR); BILIRUBIN,URINE NEGATIVE (NEGATIVE); COLOR,URINE YELLOW (YELLOW); GLUCOSE, URINE (UA) NEGATIVE (NEGATIVE); KETONES,URINE NEGATIVE (NEGATIVE); LEUKOCYTE ESTERASE ,URINE NEGATIVE (NEGATIVE); NITRATE,URINE NEGATIVE (NEGATIVE); OCCULT BLOOD,URINE NEGATIVE (NEGATIVE); PH,URINE 7.5 (5.0-8.0); PH,URINE DRUG SCREEN 7.5 (5.0-8.0); PROTEIN,URINE TRACE mg/dL (NEGATIVE); SPECIFIC GRAVITIY, URINE 1.022 (1.003-1.030)
[2024-03-06 09:05] LABS: ALCOHOL, URINE DRUG SCREEN NEGATIVE (NEGATIVE); AMPHET/METH SCREEN,URINE NEGATIVE (NEGATIVE); BARBITURATE SCREEN, URINE NEGATIVE (NEGATIVE); BENZODIAZEPINES SCREEN,URINE NEGATIVE (NEGATIVE); CANNABINOID SCREEN,URINE POSITIVE (NEGATIVE); COCAINE SCREEN,URINE NEGATIVE (NEGATIVE); METHADONE SCREEN, URINE NEGATIVE (NEGATIVE); OPIATE SCREEN,URINE NEGATIVE (NEGATIVE); PHENCYCLIDINE SCREEN,URINE NEGATIVE (NEGATIVE)
[2024-03-06 09:09] LABS: HEMOGLOBIN A1C 5.4 % (3.8-5.6)
[2024-03-06 09:11] LABS: ALCOHOL, BLOOD (SERUM) < 3 mg/dL (0-10)
[2024-03-06 09:20] LABS: ALANINE AMINOTRANSFERASE 78 U/L (12-78); ALBUMIN 3.6 g/dL (3.4-5.0); ALKALINE PHOSPHATASE 77 U/L (46-116); ANION GAP 9 mmol/L (8-16); ASPARTATE AMINOTRANSFERASE 47 U/L (15-37); BILIRUBIN,TOTAL 0.8 mg/dL (0.1-1.0); CALCIUM, TOTAL 8.9 mg/dL (8.8-10.5); CARBON DIOXIDE 27 mmol/L (22-29); CHLORIDE 104 mmol/L (98-107); CHOL/HDL RATIO 3.3 (4.2-7.3); CHOLESTEROL 153 mg/dL (131-200); CREATININE 0.72 mg/dL (0.60-1.30); FREE T4 (FREE THYROXINE) 0.95 ng/dL (0.76-1.46); GLOMERULAR FILTR. RATE CALC > 60 mL/min (>60); GLUCOSE,RANDOM 87 mg/dL (70-110); HDL CHOLESTEROL 47 mg/dL (40-60); LDL CHOL (CALC.) 94 mg/dL (0-130); SODIUM SERUM 140 mmol/L (136-145); T4 (THYROXINE) 7.6 mcg/dL (4.7-13.3); THYROID STIMULATING HORMONE 0.93 uIU/mL (0.36-3.74); TOTAL PROTEIN, SERUM 7.8 g/dL (6.4-8.2); TRIGLYCERIDES 59 mg/dL (15-150); UREA NITROGEN, BLOOD 11 mg/dL (7-18)
[2024-03-06 17:29] VITALS: BP 139/97
[2024-03-06 18:29] VITALS: RESP 18; O2SAT 98
[2024-03-06 19:29] VITALS: RESP 18; O2SAT 98
[2024-03-06 21:56] VITALS: BP 123/74; PULSE 65; RESP 18; TEMP 97.6; O2SAT 95
[2024-03-07] VITALS (7 sets, daily range): BP systolic 103–127; BP diastolic 56–98; PULSE 64–100; RESP 16–18; TEMP 97.5–97.6; O2SAT 97–100
[2024-03-07] MEDS: ACETAMINOPHEN 325 MG TABLET PO PRN (19:52)
[2024-03-07] MEDS: AMOXICILLIN TRIHYDRATE 500 MG CAPSULE PO SCH (20:12)
[2024-03-08 08:23] VITALS: BP 107/65; PULSE 65; RESP 19; TEMP 97; O2SAT 100
[2024-03-08 21:59] VITALS: BP 110/74; PULSE 92; RESP 18; TEMP 97; O2SAT 100
[2024-03-09] MEDS ORDERED: QUET300T2 PO (12:57)
[2024-03-09 13:44] VITALS: RESP 18
== END 2024-03-09 13:50 | disposition home or self-care (01) | DRG 750 ==
LOC: B2S 09:02
PROVIDERS: ADMIT Psychiatry & Neurology Psychiatry; ATTEND Psychiatry & Neurology Psychiatry
PROC: GZHZZZZ Group Psychotherapy (ICD-10-PCS; principal; 2024-03-01)
DX: F25.1 Schizoaffective disorder, depressive type (principal); R45.851 Suicidal ideations; G40.909 Epilepsy, unspecified, not intractable, without status epilepticus; F10.10 Alcohol abuse, uncomplicated; E66.9 Obesity, unspecified; E78.5 Hyperlipidemia, unspecified; Y90.0 Blood alcohol level of less than 20 mg/100 ml; F15.10 Other stimulant abuse, uncomplicated; G47.00 Insomnia, unspecified; Z68.33 Body mass index [BMI] 33.0-33.9, adult; Z20.822 Contact with and (suspected) exposure to COVID-19; Z79.899 Other long term (current) drug therapy; Z59.00 Homelessness unspecified
CPT/HCPCS: 80053; 80061; 80307; 81003; 83036; 84436; 84439; 84443; 85025; 86592; G0480

== ENCOUNTER 2024-03-12 09:49 | Inpatient (IN) | payer MEDICAID ==
[~2024-03-12] VITALS: Ht 175.3 cm; Wt 102.5 kg
[~2024-03-12 09:49] MED LIST changes: -DIVA500T69 PO; -FLUO-418 PO; -GABA-1201 PO; -MELA5TAB40 PO; -NALT50TA33 PO; -OLAN10TA26 PO; -OMEG-135 PO; +QUET300T2 PO
[2024-03-12] MEDS: LORazepam 2 MG TABLET PO PRN (12:03)
[2024-03-12] MEDS: HALOPERIDOL 5 MG TABLET PO PRN (12:03)
[2024-03-12] MEDS ORDERED: MAG HYDROX/ALUMINUM HYD/SIMETH ES 30 ML SUSPENSION UDCUP PO PRN (12:45)
[2024-03-12] MEDS ORDERED: ACETAMINOPHEN 325 MG TABLET PO PRN (12:45)
[2024-03-12] MEDS ORDERED: LOPERAMIDE HCL 2 MG CAPSULE PO PRN (12:45)
[2024-03-12] MEDS ORDERED: MAGNESIUM HYDROXIDE SUSPENSION 30 ML UDCUP PO PRN (12:45)
[2024-03-12] MEDS: AmLODIPine BESYLATE 5 MG TABLET PO SCH (12:59)
[2024-03-12 14:12] VITALS: BP 161/106; PULSE 104; RESP 18; TEMP 98.4; O2SAT 96
[2024-03-12 20:12] VITALS: BP 127/79; PULSE 84; RESP 16; TEMP 96.5; O2SAT 96
[2024-03-12] MEDS: ZOLPIDEM TARTRATE 10 MG TABLET PO PRN (21:25)
[2024-03-12] MEDS: HydrOXYzine PAMOATE 50 MG CAPSULE PO PRN (21:26)
[2024-03-13 08:17] VITALS: BP 127/72; PULSE 82; RESP 16; TEMP 98.1; O2SAT 99
[2024-03-13 09:45] LABS: PH,URINE DRUG SCREEN 5.5 (5.0-8.0)
[2024-03-13 09:57] LABS: ALCOHOL, URINE DRUG SCREEN POSITIVE (NEGATIVE); AMPHET/METH SCREEN,URINE POSITIVE (NEGATIVE); BARBITURATE SCREEN, URINE NEGATIVE (NEGATIVE); BENZODIAZEPINES SCREEN,URINE NEGATIVE (NEGATIVE); CANNABINOID SCREEN,URINE NEGATIVE (NEGATIVE); COCAINE SCREEN,URINE NEGATIVE (NEGATIVE); METHADONE SCREEN, URINE NEGATIVE (NEGATIVE); OPIATE SCREEN,URINE NEGATIVE (NEGATIVE); PHENCYCLIDINE SCREEN,URINE NEGATIVE (NEGATIVE)
[2024-03-13] MEDS ORDERED: CloNIDine HCL 0.1 MG TABLET PO PRN (10:00)
[2024-03-13] MEDS ORDERED: ACETAMINOPHEN 325 MG TABLET PO PRN (10:00)
[2024-03-13] MEDS ORDERED: MAG HYDROX/ALUMINUM HYD/SIMETH ES 30 ML SUSPENSION UDCUP PO PRN (10:00)
[2024-03-13] MEDS ORDERED: ONDANSETRON 4 MG TABLET PO PRN (10:00)
[2024-03-13] MEDS ORDERED: ALBUTEROL SULFATE HFA 90 MCG/PUFF 8 GM INHALER IH PRN (10:00)
[2024-03-13] MEDS ORDERED: MAGNESIUM HYDROXIDE SUSPENSION 30 ML UDCUP PO PRN (10:00)
[2024-03-13] MEDS ORDERED: GuaiFENesin/D-METHORPHAN [SUGAR-FREE] 200-20MG/10 ML SYRUP UDCUP PO PRN (10:00)
[2024-03-13] MEDS ORDERED: DOCUSATE SODIUM 100 MG CAPSULE PO PRN (10:00)
[2024-03-13] MEDS ORDERED: PETROLATUM,WHITE 28 GM JELLY TP PRN (10:00)
[2024-03-13] MEDS ORDERED: NICOTINE 14 MG/24 HOUR PATCH TD PRN (10:00)
[2024-03-13] MEDS ORDERED: LOPERAMIDE HCL 2 MG CAPSULE PO PRN (10:00)
[2024-03-13] MEDS ORDERED: IBUPROFEN 400 MG TABLET PO PRN (10:00)
[2024-03-13 20:27] VITALS: BP 123/72; PULSE 72; RESP 18; TEMP 97.5; O2SAT 97
[2024-03-13] MEDS: QUEtiapine FUMARATE 300 MG TABLET PO SCH (20:28)
[2024-03-14 08:28] VITALS: BP 130/72; PULSE 81; RESP 18; TEMP 97.1; O2SAT 98
[2024-03-14 20:12] VITALS: BP 160/71; PULSE 72; RESP 17; TEMP 96.5; O2SAT 100
[2024-03-15 08:11] VITALS: BP 140/90; PULSE 91; RESP 18; TEMP 97.2; O2SAT 100
[2024-03-15 09:54] LABS: APPEARANCE,URINE CLEAR (CLEAR); BILIRUBIN,URINE NEGATIVE (NEGATIVE); COLOR,URINE LIGHT YELLOW (YELLOW); GLUCOSE, URINE (UA) NEGATIVE (NEGATIVE); KETONES,URINE NEGATIVE (NEGATIVE); LEUKOCYTE ESTERASE ,URINE NEGATIVE (NEGATIVE); NITRATE,URINE NEGATIVE (NEGATIVE); OCCULT BLOOD,URINE NEGATIVE (NEGATIVE); PH,URINE 6.5 (5.0-8.0); PROTEIN,URINE NEGATIVE (NEGATIVE); SPECIFIC GRAVITIY, URINE 1.023 (1.003-1.030); UROBILINOGEN,URINE <=1.0 mg/dL (<=1.0)
[2024-03-15 20:11] VITALS: BP 138/60; PULSE 86; RESP 16; TEMP 96.6; O2SAT 100
[2024-03-16 08:02] VITALS: BP 119/66; PULSE 66; RESP 16; TEMP 97.7; O2SAT 100
[2024-03-16] MEDS: ESCITALOPRAM OXALATE 10 MG TABLET PO SCH (08:43)
[2024-03-16 20:16] VITALS: BP 130/82; PULSE 71; RESP 18; TEMP 98.6; O2SAT 96
[2024-03-17 10:23] VITALS: BP 120/65; PULSE 80; RESP 18; TEMP 97.3; O2SAT 100
[2024-03-17 20:08] VITALS: BP 125/79; PULSE 83; RESP 18; TEMP 97.9; O2SAT 99
[2024-03-18 08:53] VITALS: BP 119/58; PULSE 90; RESP 18; TEMP 98; O2SAT 96
[2024-03-18 20:14] VITALS: BP_SYST 124; BP_SYST 142; BP_DIAS 66; BP_DIAS 84; PULSE 101; PULSE 88; RESP 18; TEMP 98.2; TEMP 98.3; O2SAT 96; O2SAT 98
[2024-03-19 08:21] VITALS: BP 110/69; PULSE 72; RESP 18; TEMP 98; O2SAT 98
[2024-03-19] MEDS: INFLUENZA VIRUS VACCINE TVS (6MO+) 2024-25/PF 45 MCG/0.5 ML SYRINGE IM. ONE (17:46)
[2024-03-19 20:30] VITALS: BP 125/85; PULSE 77; RESP 18; TEMP 98.3; O2SAT 99
[2024-03-20 08:37] VITALS: BP 110/66; PULSE 76; RESP 17; TEMP 97.4; O2SAT 95
[2024-03-20 19:30] VITALS: BP 132/82; PULSE 84; RESP 17; TEMP 98; O2SAT 98
[2024-03-20 20:00] VITALS: BP 132/82; PULSE 84; RESP 17; TEMP 98; O2SAT 98
[2024-03-21 08:19] VITALS: BP 111/60; PULSE 67; RESP 19; TEMP 97.8; O2SAT 97
[2024-03-21] MEDS ORDERED: ESCI-8 PO ×2 (11:29→14:50)
[2024-03-21] MEDS ORDERED: AMLO-257 PO ×2 (11:38→12:15)
== END 2024-03-21 14:01 | disposition home or self-care (01) | DRG 750 ==
LOC: B2S 10:26
PROVIDERS: ADMIT Psychiatry & Neurology Psychiatry; ATTEND Psychiatry & Neurology Psychiatry
PROC: GZHZZZZ Group Psychotherapy (ICD-10-PCS; principal; 2024-03-13)
PROC: GZ52ZZZ Individual Psychotherapy, Cognitive (ICD-10-PCS; 2024-03-13)
DX: F25.1 Schizoaffective disorder, depressive type (principal); R45.851 Suicidal ideations; E66.9 Obesity, unspecified; F41.9 Anxiety disorder, unspecified; I10 Essential (primary) hypertension; F19.10 Other psychoactive substance abuse, uncomplicated; G47.00 Insomnia, unspecified; Z59.00 Homelessness unspecified; Z79.899 Other long term (current) drug therapy; Z68.33 Body mass index [BMI] 33.0-33.9, adult
CPT/HCPCS: 80307; 81003; 87081

== ENCOUNTER 2024-04-22 23:02 | Inpatient (IN) | payer MEDICAID ==
[~2024-04-22] VITALS: Ht 175.3 cm; Wt 100.8 kg
[~2024-04-22 23:02] MED LIST changes: +AMLO-257 PO; +ESCI-8 PO
[2024-04-23] MEDS ORDERED: HALOPERIDOL 5 MG TABLET PO PRN (01:30)
[2024-04-23] MEDS ORDERED: ZOLPIDEM TARTRATE 10 MG TABLET PO PRN (01:30)
[2024-04-23 02:21] LABS: GLUCOMETER DEV NAME(LOC) POC.BV; POC SARS-COV2 AG, FIA NEGATIVE (NEGATIVE)
[2024-04-23 03:32] VITALS: BP 146/90; PULSE 98; RESP 18; TEMP 98.8; O2SAT 98
[2024-04-23] MEDS ORDERED: INFLUENZA VIRUS VACCINE TVS (6MO+) 2024-25/PF 45 MCG/0.5 ML SYRINGE IM. ONE (06:45)
[2024-04-23 08:09] LABS: APPEARANCE,URINE CLEAR (CLEAR); BILIRUBIN,URINE NEGATIVE (NEGATIVE); COLOR,URINE YELLOW (YELLOW); GLUCOSE, URINE (UA) NEGATIVE (NEGATIVE); LEUKOCYTE ESTERASE ,URINE NEGATIVE (NEGATIVE); NITRATE,URINE NEGATIVE (NEGATIVE); OCCULT BLOOD,URINE NEGATIVE (NEGATIVE); PROTEIN,URINE TRACE mg/dL (NEGATIVE); SPECIFIC GRAVITIY, URINE 1.018 (1.003-1.030)
[2024-04-23] MEDS: LORazepam 2 MG TABLET PO PRN (11:02)
[2024-04-23 12:29] VITALS: BP 144/77; PULSE 92; RESP 17; TEMP 98.1; O2SAT 99
[2024-04-23] MEDS: QUEtiapine FUMARATE 300 MG TABLET PO SCH (20:37)
[2024-04-23 21:20] VITALS: BP 137/91; PULSE 85; RESP 16; TEMP 97.9; O2SAT 98
[2024-04-24 08:36] VITALS: BP 136/94; PULSE 87; RESP 18; TEMP 97.6; O2SAT 100
[2024-04-24] MEDS: AmLODIPine BESYLATE 5 MG TABLET PO SCH (09:59)
[2024-04-24] MEDS: ESCITALOPRAM OXALATE 10 MG TABLET PO SCH (09:59)
[2024-04-24 20:09] VITALS: BP 125/71; PULSE 80; RESP 17; TEMP 97.7
[2024-04-25 09:30] VITALS: BP 135/73; PULSE 82; RESP 18; TEMP 97.7; O2SAT 96
[2024-04-25 21:22] VITALS: BP 106/60; PULSE 76; RESP 17; TEMP 98.2; O2SAT 96
[2024-04-26 09:12] VITALS: BP 131/75; PULSE 79; RESP 16; TEMP 98; O2SAT 98
[2024-04-26 20:37] VITALS: BP 123/63; PULSE 71; RESP 16; TEMP 98.6; O2SAT 98
[2024-04-27] MEDS ORDERED: ALBUTEROL SULFATE HFA 90 MCG/PUFF 8 GM INHALER IH PRN (01:00)
[2024-04-27] MEDS ORDERED: ACETAMINOPHEN 325 MG TABLET PO PRN (01:00)
[2024-04-27] MEDS ORDERED: MAG HYDROX/ALUMINUM HYD/SIMETH ES 30 ML SUSPENSION UDCUP PO PRN (01:00)
[2024-04-27] MEDS ORDERED: PETROLATUM,WHITE 28 GM JELLY TP PRN (01:00)
[2024-04-27] MEDS ORDERED: CloNIDine HCL 0.1 MG TABLET PO PRN (01:00)
[2024-04-27] MEDS ORDERED: ONDANSETRON 4 MG TABLET PO PRN (01:00)
[2024-04-27] MEDS ORDERED: DOCUSATE SODIUM 100 MG CAPSULE PO PRN (01:00)
[2024-04-27] MEDS ORDERED: MAGNESIUM HYDROXIDE SUSPENSION 30 ML UDCUP PO PRN (01:00)
[2024-04-27] MEDS ORDERED: GuaiFENesin/D-METHORPHAN [SUGAR-FREE] 200-20MG/10 ML SYRUP UDCUP PO PRN (01:00)
[2024-04-27] MEDS ORDERED: NICOTINE 14 MG/24 HOUR PATCH TD PRN (01:00)
[2024-04-27] MEDS ORDERED: LOPERAMIDE HCL 2 MG CAPSULE PO PRN (01:00)
[2024-04-27 01:05] VITALS: RESP 18
[2024-04-27] MEDS: IBUPROFEN 400 MG TABLET PO PRN (01:06)
[2024-04-27 02:06] VITALS: RESP 16
[2024-04-27 08:16] VITALS: BP 108/63; PULSE 75; RESP 17; TEMP 98.6
[2024-04-27 20:32] VITALS: BP 105/67; PULSE 83; RESP 18; TEMP 98
[2024-04-28 08:54] VITALS: BP 106/66; PULSE 81; RESP 16; TEMP 98.7; O2SAT 96
[2024-04-28 09:46] LABS: EOSINOPHILS % (AUTO) 4.6 % (1.0-6.0); HEMATOCRIT 45.3 % (41-53); HEMOGLOBIN 15.4 g/dL (13.5-17.5); LYMPHOCYTES # (AUTO) 2.1 K/uL (1.0-4.8); LYMPHOCYTES % (AUTO) 32.2 % (22.0-44.0); MEAN CORPUSCULAR HEMOGLOBIN 31.8 pg (26.0-34.0); MEAN CORPUSCULAR HGB CONC 33.9 G/dL (31.0-37.0); MEAN CORPUSCULAR VOLUME 94 fL (80-100); MONOCYTES # (AUTO) 0.6 K/uL (0.1-1.0); MONOCYTES % (AUTO) 9.6 % (2.0-9.0); NEUTROPHILS # (AUTO) 3.5 K/uL (1.8-7.7); NEUTROPHILS % (AUTO) 52.6 % (40.0-70.0); PLATELET COUNT (AUTO) 259 K/uL (150-450); RED BLOOD CELL COUNT(AUTO) 4.83 MIL/uL (4.50-5.90); RED CELL DISTRIBUTION WIDTH 14.3 % (11.5-14.5); WHITE BLOOD COUNT (AUTO) 6.6 K/uL (4.5-11.0)
[2024-04-28 10:08] LABS: ALANINE AMINOTRANSFERASE 60 U/L (12-78); ALBUMIN 3.1 g/dL (3.4-5.0); ALKALINE PHOSPHATASE 81 U/L (46-116); ANION GAP 7 mmol/L (8-16); ASPARTATE AMINOTRANSFERASE 41 U/L (15-37); BILIRUBIN,TOTAL 0.7 mg/dL (0.1-1.0); CALCIUM, TOTAL 8.5 mg/dL (8.8-10.5); CARBON DIOXIDE 26 mmol/L (22-29); CHLORIDE 104 mmol/L (98-107); CREATININE 0.69 mg/dL (0.60-1.30); GLOMERULAR FILTR. RATE CALC > 60 mL/min (>60); GLUCOSE,RANDOM 94 mg/dL (70-110); POTASSIUM 3.8 mmol/L (3.5-5.1); SODIUM SERUM 137 mmol/L (136-145); THYROID STIMULATING HORMONE 1.51 uIU/mL (0.36-3.74); TOTAL PROTEIN, SERUM 7.4 g/dL (6.4-8.2); UREA NITROGEN, BLOOD 12 mg/dL (7-18)
[2024-04-28 10:09] LABS: HEMOGLOBIN A1C 4.8 % (3.8-5.6)
[2024-04-28 10:31] LABS: CHOL/HDL RATIO 3.4 (4.2-7.3); CHOLESTEROL 158 mg/dL (131-200); HDL CHOLESTEROL 46 mg/dL (40-60); LDL CHOL (CALC.) 96 mg/dL (0-130); TRIGLYCERIDES 78 mg/dL (15-150)
[2024-04-28 21:54] VITALS: BP 122/82; PULSE 91; RESP 18; TEMP 97.3; O2SAT 99
[2024-04-29 08:48] VITALS: BP 118/76; PULSE 89; RESP 18; TEMP 97.4; O2SAT 99
[2024-04-29 21:43] VITALS: BP 105/62; PULSE 84; RESP 17; TEMP 97.8; O2SAT 97
[2024-04-30 09:06] VITALS: BP 107/60; PULSE 72; RESP 19; TEMP 98.2; O2SAT 98
[2024-04-30 20:15] VITALS: BP 118/67; PULSE 85; RESP 18; TEMP 98.5; O2SAT 99
[2024-05-01 08:24] VITALS: BP 120/69; PULSE 84; RESP 18; TEMP 98.1; O2SAT 98
[2024-05-01 20:00] VITALS: BP 111/71; PULSE 90; RESP 16; TEMP 97.7; O2SAT 97
[2024-05-02 08:43] VITALS: BP 110/71; PULSE 80; RESP 16; TEMP 97.7; O2SAT 97
[2024-05-02 20:00] VITALS: BP 118/74; PULSE 76; RESP 17; TEMP 98.8; O2SAT 99
[2024-05-03 08:19] VITALS: BP 116/61; PULSE 71; RESP 17; TEMP 97.5; O2SAT 98
[2024-05-03 21:18] VITALS: BP 118/72; PULSE 72; RESP 18; TEMP 97.8; O2SAT 98
[2024-05-04 08:29] VITALS: BP 101/64; PULSE 68; RESP 17; TEMP 97.8; O2SAT 100
[2024-05-04 21:18] VITALS: BP 113/71; PULSE 73; RESP 18; TEMP 98.2
[2024-05-05 08:42] VITALS: BP 112/64; PULSE 68; RESP 17; TEMP 97.8; O2SAT 100
[2024-05-05] MEDS ORDERED: QUET300T19 PO (12:16)
== END 2024-05-05 12:47 | disposition home or self-care (01) | DRG 750 ==
LOC: UNDOADMIN 04-23 02:31 → B2S 04-23 02:31
PROVIDERS: ADMIT Psychiatry & Neurology Child & Adolescent Psychiatry; ATTEND Psychiatry & Neurology Child & Adolescent Psychiatry
PROC: GZHZZZZ Group Psychotherapy (ICD-10-PCS; principal; 2024-04-23)
PROC: GZ56ZZZ Individual Psychotherapy, Supportive (ICD-10-PCS; 2024-04-23)
DX: F25.1 Schizoaffective disorder, depressive type (principal); F41.9 Anxiety disorder, unspecified; I10 Essential (primary) hypertension; G47.00 Insomnia, unspecified; Z20.822 Contact with and (suspected) exposure to COVID-19; Z79.899 Other long term (current) drug therapy
CPT/HCPCS: 80053; 80061; 81003; 83036; 84443; 85025; 87081

== ENCOUNTER 2024-05-09 21:17 | Emergency (ER) | payer MEDICAID, OTHER ==
[~2024-05-09] VITALS: Ht 175.3 cm; Wt 97.3 kg
[~2024-05-09 21:17] MED LIST changes: +QUET300T19 PO
[2024-05-09 21:24] VITALS: TEMP 98.3
[2024-05-09 21:50] LABS: COVID AG,FIA SOURCE NASAL SWAB
[2024-05-09 21:57] VITALS: BP 121/69; PULSE 118; RESP 18; O2SAT 95
[2024-05-09 21:59] LABS: PH,URINE DRUG SCREEN 5.5 (5.0-8.0)
[2024-05-09 22:07] LABS: ALCOHOL, URINE DRUG SCREEN POSITIVE (NEGATIVE); AMPHET/METH SCREEN,URINE POSITIVE (NEGATIVE); BARBITURATE SCREEN, URINE NEGATIVE (NEGATIVE); BENZODIAZEPINES SCREEN,URINE NEGATIVE (NEGATIVE); CANNABINOID SCREEN,URINE NEGATIVE (NEGATIVE); COCAINE SCREEN,URINE NEGATIVE (NEGATIVE); METHADONE SCREEN, URINE NEGATIVE (NEGATIVE); OPIATE SCREEN,URINE NEGATIVE (NEGATIVE); PHENCYCLIDINE SCREEN,URINE NEGATIVE (NEGATIVE)
[2024-05-09 22:13] LABS: SARS-COV2 (COVID) ANTIGEN,FIA Negative (Negative)
[2024-05-09 22:41] LABS: EOSINOPHILS % (AUTO) 2.1 % (1.0-6.0); HEMATOCRIT 40.3 % (41-53); HEMOGLOBIN 13.7 g/dL (13.5-17.5); LYMPHOCYTES # (AUTO) 3.8 K/uL (1.0-4.8); MEAN CORPUSCULAR HEMOGLOBIN 31.6 pg (26.0-34.0); MEAN CORPUSCULAR VOLUME 93 fL (80-100); MONOCYTES # (AUTO) 0.7 K/uL (0.1-1.0); MONOCYTES % (AUTO) 7.9 % (2.0-9.0); PLATELET COUNT (AUTO) 384 K/uL (150-450); RED BLOOD CELL COUNT(AUTO) 4.34 MIL/uL (4.50-5.90); RED CELL DISTRIBUTION WIDTH 14.3 % (11.5-14.5); WHITE BLOOD COUNT (AUTO) 8.7 K/uL (4.5-11.0)
[2024-05-09 22:50] LABS: ANION GAP 15 mmol/L (8-16); CALCIUM, TOTAL 7.9 mg/dL (8.8-10.5); CARBON DIOXIDE 23 mmol/L (22-29); CHLORIDE 103 mmol/L (98-107); CREATININE 0.74 mg/dL (0.60-1.30); GLOMERULAR FILTR. RATE CALC > 60 mL/min (>60); GLUCOSE,RANDOM 98 mg/dL (70-110); POTASSIUM 3.3 mmol/L (3.5-5.1); SODIUM SERUM 141 mmol/L (136-145); UREA NITROGEN, BLOOD 6 mg/dL (7-18)
[2024-05-09 22:52] LABS: ALCOHOL, BLOOD (SERUM) 175 mg/dL (0-10)
== END 2024-05-10 02:45 | disposition left against medical advice (07) ==
LOC: EMS 21:17
DX: F20.9 Schizophrenia, unspecified (principal); F31.9 Bipolar disorder, unspecified; F10.229 Alcohol dependence with intoxication, unspecified; F12.90 Cannabis use, unspecified, uncomplicated; F41.9 Anxiety disorder, unspecified; K21.9 Gastro-esophageal reflux disease without esophagitis; I10 Essential (primary) hypertension; F17.210 Nicotine dependence, cigarettes, uncomplicated; F15.90 Other stimulant use, unspecified, uncomplicated; Z98.890 Other specified postprocedural states; Z20.822 Contact with and (suspected) exposure to COVID-19; Y90.6 Blood alcohol level of 120-199 mg/100 ml
CPT/HCPCS: 99283; 87426; 80048; 85025; 36415; 80307; G0480

== ENCOUNTER 2024-05-13 15:59 | Inpatient (IN) | payer MEDICAID ==
[~2024-05-13] VITALS: Ht 175.3 cm; Wt 96.8 kg
[2024-05-13] MEDS ORDERED: ACETAMINOPHEN 325 MG TABLET PO PRN (16:15)
[2024-05-13] MEDS ORDERED: MAG HYDROX/ALUMINUM HYD/SIMETH ES 30 ML SUSPENSION UDCUP PO PRN (16:15)
[2024-05-13] MEDS ORDERED: LOPERAMIDE HCL 2 MG CAPSULE PO PRN (16:15)
[2024-05-13] MEDS ORDERED: MAGNESIUM HYDROXIDE SUSPENSION 30 ML UDCUP PO PRN (16:15)
[2024-05-13 17:16] LABS: GLUCOMETER DEV NAME(LOC) POC.BV; POC SARS-COV2 AG, FIA NEGATIVE (NEGATIVE)
[2024-05-13] MEDS: INFLUENZA VIRUS VACCINE TVS (6MO+) 2024-25/PF 45 MCG/0.5 ML SYRINGE IM. ONE (17:45)
[2024-05-13] MEDS: PNEUMOCOCCAL VACCINE POLYVALENT 0.5 ML SYRINGE [PPSV23] IM. ONE (17:45)
[2024-05-13] MEDS ORDERED: LORazepam 2 MG TABLET ONE (18:13)
[2024-05-13] MEDS ORDERED: HALOPERIDOL 5 MG TABLET ONE (18:13)
[2024-05-13] MEDS: LORazepam 2 MG TABLET PO PRN (18:43)
[2024-05-13] MEDS: HALOPERIDOL 5 MG TABLET PO PRN (18:43)
[2024-05-13 19:17] VITALS: BP 123/94; PULSE 106; RESP 17; TEMP 97.3; O2SAT 98
[2024-05-13] MEDS: ZOLPIDEM TARTRATE 10 MG TABLET PO PRN (20:01)
[2024-05-13 20:19] VITALS: BP 125/89; PULSE 107; RESP 19; TEMP 97.6; O2SAT 99
[2024-05-14 08:39] VITALS: BP 139/86; PULSE 73; RESP 18; TEMP 97; O2SAT 97
[2024-05-14] MEDS ORDERED: NICOTINE 14 MG/24 HOUR PATCH TD PRN (10:15)
[2024-05-14] MEDS ORDERED: MAG HYDROX/ALUMINUM HYD/SIMETH ES 30 ML SUSPENSION UDCUP PO PRN (10:15)
[2024-05-14] MEDS ORDERED: PETROLATUM,WHITE 28 GM JELLY TP PRN (10:15)
[2024-05-14] MEDS ORDERED: CloNIDine HCL 0.1 MG TABLET PO PRN (10:15)
[2024-05-14] MEDS ORDERED: DOCUSATE SODIUM 100 MG CAPSULE PO PRN (10:15)
[2024-05-14] MEDS ORDERED: MAGNESIUM HYDROXIDE SUSPENSION 30 ML UDCUP PO PRN (10:15)
[2024-05-14] MEDS ORDERED: ONDANSETRON 4 MG TABLET PO PRN (10:15)
[2024-05-14] MEDS ORDERED: LOPERAMIDE HCL 2 MG CAPSULE PO PRN (10:15)
[2024-05-14] MEDS ORDERED: ACETAMINOPHEN 325 MG TABLET PO PRN (10:15)
[2024-05-14] MEDS ORDERED: ALBUTEROL SULFATE HFA 90 MCG/PUFF 8 GM INHALER IH PRN (10:15)
[2024-05-14] MEDS ORDERED: GuaiFENesin/D-METHORPHAN [SUGAR-FREE] 200-20MG/10 ML SYRUP UDCUP PO PRN (10:15)
[2024-05-14 20:50] VITALS: BP 142/87; PULSE 81; RESP 20; TEMP 97.7; O2SAT 97
[2024-05-15 08:45] VITALS: BP 116/76; PULSE 74; RESP 17; TEMP 97; O2SAT 98
[2024-05-15] MEDS: ESCITALOPRAM OXALATE 10 MG TABLET PO SCH (09:33)
[2024-05-15] MEDS: AmLODIPine BESYLATE 5 MG TABLET PO SCH (09:33)
[2024-05-15 20:11] VITALS: BP 104/63; PULSE 82; RESP 18; TEMP 97.5; O2SAT 99
[2024-05-15] MEDS: QUEtiapine FUMARATE 300 MG TABLET PO SCH (20:31)
[2024-05-16 08:35] VITALS: BP 108/64; PULSE 63; RESP 16; TEMP 97.4; O2SAT 100
[2024-05-16 20:49] VITALS: BP 112/60; PULSE 71; RESP 16; TEMP 97.6; O2SAT 99
[2024-05-17 08:49] VITALS: BP 108/57; PULSE 64; RESP 17; TEMP 97.7; O2SAT 98
[2024-05-17 20:30] VITALS: BP 145/76; PULSE 73; RESP 17; TEMP 97.5; O2SAT 99
[2024-05-18 08:33] VITALS: BP 137/95; PULSE 81; RESP 18; TEMP 98.2; O2SAT 96
[2024-05-18 20:00] VITALS: BP 131/77; PULSE 80; RESP 18; TEMP 98; O2SAT 98
[2024-05-19 08:53] VITALS: BP 123/73; PULSE 73; RESP 17; TEMP 98.3; O2SAT 95
[2024-05-19 20:29] VITALS: BP 109/76; PULSE 79; RESP 18; TEMP 98.1; O2SAT 99
[2024-05-20 08:43] VITALS: BP 100/62; PULSE 70; RESP 17; TEMP 97.8; O2SAT 100
[2024-05-20 09:54] LABS: APPEARANCE,URINE HAZY (CLEAR); BILIRUBIN,URINE NEGATIVE (NEGATIVE); COLOR,URINE YELLOW (YELLOW); GLUCOSE, URINE (UA) NEGATIVE (NEGATIVE); KETONES,URINE NEGATIVE (NEGATIVE); LEUKOCYTE ESTERASE ,URINE NEGATIVE (NEGATIVE); NITRATE,URINE NEGATIVE (NEGATIVE); OCCULT BLOOD,URINE NEGATIVE (NEGATIVE); PROTEIN,URINE TRACE mg/dL (NEGATIVE); SPECIFIC GRAVITIY, URINE 1.023 (1.003-1.030); UROBILINOGEN,URINE <=1.0 mg/dL (<=1.0)
[2024-05-20 09:57] LABS: ALCOHOL, URINE DRUG SCREEN NEGATIVE (NEGATIVE); AMPHET/METH SCREEN,URINE NEGATIVE (NEGATIVE); BARBITURATE SCREEN, URINE NEGATIVE (NEGATIVE); BENZODIAZEPINES SCREEN,URINE NEGATIVE (NEGATIVE); CANNABINOID SCREEN,URINE NEGATIVE (NEGATIVE); COCAINE SCREEN,URINE NEGATIVE (NEGATIVE); METHADONE SCREEN, URINE NEGATIVE (NEGATIVE); OPIATE SCREEN,URINE NEGATIVE (NEGATIVE)
[2024-05-20 10:30] LABS: PHENCYCLIDINE SCREEN,URINE NEGATIVE (NEGATIVE)
[2024-05-20 20:25] VITALS: BP 116/61; PULSE 68; RESP 18; TEMP 96.5; O2SAT 99
[2024-05-21 08:23] VITALS: BP 112/63; PULSE 70; RESP 19; TEMP 97.6; O2SAT 97
[2024-05-21 20:05] VITALS: BP 124/76; PULSE 86; RESP 18; TEMP 97.5; O2SAT 97
[2024-05-22 09:02] VITALS: BP 103/62; PULSE 62; RESP 18; TEMP 97.9; O2SAT 96
[2024-05-22 20:22] VITALS: BP 114/77; PULSE 85; RESP 18; TEMP 98.1; O2SAT 96
[2024-05-23] MEDS: ESCITALOPRAM OXALATE 10 MG TABLET PO SCH (08:19)
[2024-05-23 09:20] VITALS: BP 97/63; PULSE 60; RESP 18; TEMP 97.8; O2SAT 98
[2024-05-23 21:31] VITALS: BP 115/66; PULSE 79; RESP 18; TEMP 97; O2SAT 98
[2024-05-24 08:31] VITALS: BP 119/72; PULSE 84; RESP 17; TEMP 98.2; O2SAT 96
[2024-05-24 20:36] VITALS: BP 125/82; PULSE 83; RESP 18; TEMP 97.4; O2SAT 95
[2024-05-25 10:22] VITALS: BP 108/60; PULSE 71; RESP 17; TEMP 96.6; O2SAT 98
[2024-05-25 20:17] VITALS: BP 109/70; PULSE 80; RESP 18; TEMP 97.7; O2SAT 95
[2024-05-26 09:38] VITALS: BP 111/71; PULSE 66; RESP 17; TEMP 98; O2SAT 96
[2024-05-26 20:58] VITALS: BP 117/7; PULSE 73; RESP 18; TEMP 96.7; O2SAT 98
[2024-05-27 08:45] VITALS: BP 102/64; PULSE 60; RESP 18; TEMP 97.8; O2SAT 97
[2024-05-27 15:59] VITALS: RESP 18; O2SAT 98
[2024-05-27] MEDS: IBUPROFEN 400 MG TABLET PO PRN (15:59)
[2024-05-27 16:59] VITALS: RESP 17; O2SAT 98
[2024-05-27 20:20] VITALS: BP 147/97; PULSE 85; RESP 18; TEMP 96.6; O2SAT 98
[2024-05-28] MEDS ORDERED: ESCI20TA87 PO (07:32)
== END 2024-05-28 08:10 | disposition home or self-care (01) | DRG 750 ==
LOC: B2S 17:22
PROVIDERS: ADMIT Psychiatry & Neurology Psychiatry; ATTEND Psychiatry & Neurology Child & Adolescent Psychiatry
PROC: GZHZZZZ Group Psychotherapy (ICD-10-PCS; principal; 2024-05-14)
PROC: GZ52ZZZ Individual Psychotherapy, Cognitive (ICD-10-PCS; 2024-05-21)
DX: F25.1 Schizoaffective disorder, depressive type (principal); R45.851 Suicidal ideations; F15.20 Other stimulant dependence, uncomplicated; F10.20 Alcohol dependence, uncomplicated; Z20.822 Contact with and (suspected) exposure to COVID-19; F41.9 Anxiety disorder, unspecified; G47.00 Insomnia, unspecified; I10 Essential (primary) hypertension; Y90.0 Blood alcohol level of less than 20 mg/100 ml; Z59.00 Homelessness unspecified; Z79.899 Other long term (current) drug therapy
CPT/HCPCS: 80307; 81003; 83036; 87081; 90686; 90732